=== PATIENT | female | born 1930 | race Caucasian/White ===

== ENCOUNTER 2017-05-06 22:29 | Inpatient (IN) | payer MEDICARE, OTHER ==
[~2017-05-06] VITALS: Ht 160 cm; Wt 80.7 kg
--- NOTE | 2017-05-06 22:42 | NUR ---
BB [id number] FROM HOME C/O N/V, BODY ACHE X 1 DAY. PT DENIES DIARRHEA. SKIN WARM AND MOIST. PT IS AAOX4. RESP EVEN AND UNLABORED. NO S/S OF ACUTE DISTRESS NOTED. VSS. PT GOWNED AND PLACED ON MONITOR AND POX. PT SAFETY AND COMFORT MEASURES IN PLACE. PT'S SON BEDSIDE. AWAITING MD FOR EVAL.
[2017-05-06] MEDS ORDERED: ACETAMINOPHEN 650 MG/SUPP.RECT RC ONE ×2 (23:00→23:13)
[2017-05-06] MEDS ORDERED: ONDANSETRON HCL/PF - ER 4 MG/2 ML VIAL IV ONE (23:00)
[2017-05-06] MEDS ORDERED: IV NS 0.9% 500 ML BAG IV ONE (23:00)
[2017-05-06] MEDS ORDERED: ONDANSETRON HCL/PF 4 MG/2 ML VIAL ONE (23:13)
[2017-05-06] MEDS ORDERED: ACETAMINOPHEN 120 MG/SUPP.RECT RC ONE (23:14)
[2017-05-06 23:23] LABS: BASOPHILS # (AUTO) 0.1 /CMM (0.0-0.2); BASOPHILS % (AUTO) 0.6 % (0.0-2.0); EOSINOPHILS % (AUTO) 0.1 % (0.0-6.0); HEMATOCRIT 31 % (33-45); HEMOGLOBIN 10.3 g/dL (11.5-14.8); LYMPHOCYTES # (AUTO) 0.8 /CMM (0.8-4.8); MEAN CORPUSCULAR HGB CONC 33 g/dl (31.0-36.0); MEAN CORPUSCULAR VOLUME 95 fL (82-100); MONOCYTES # (AUTO) 0.4 /CMM (0.1-1.30); MONOCYTES % (AUTO) 3.9 % (2.0-12.0); NEUTROPHILS # (AUTO) 8.5 /CMM (1.8-8.9); NEUTROPHILS % (AUTO) 87.4 % (43.0-81.0); PLATELET COUNT (AUTO) 128 /CMM (150-450); WHITE BLOOD COUNT (AUTO) 9.7 K/uL (4.3-11.0)
[2017-05-06 23:32] LABS: CALCIUM, SERUM 8.8 mg/dL (8.5-10.1); CARBON DIOXIDE 30 mmol/L (21-32); CHLORIDE 99 mmol/L (98-107); CREATININE 1.1 mg/dL (0.6-1.3); GLUCOSE 178 mg/dL (74-106); POTASSIUM 4.1 mmol/L (3.5-5.1); SODIUM SERUM 138 mmol/L (136-145); UREA NITROGEN, BLOOD 20 mg/dL (7-18)
[2017-05-06 23:43] LABS: INR 1.05 (0.87-1.13)
[2017-05-06 23:44] LABS: APPEARANCE,URINE CLOUDY (CLEAR); BILIRUBIN,URINE NEGATIVE (NEGATIVE); BLOOD, URINE 2+ Ery/uL (NEGATIVE); COLOR,URINE YELLOW (YELLOW); KETONES,URINE NEGATIVE (NEGATIVE); LEUKOCYTE ESTERASE ,URINE 2+ (NEGATIVE); NITRITE, URINE POSITIVE (NEGATIVE); PH,URINE 5.5 (5.0-8.0); PROTEIN,URINE TRACE mg/dl (NEGATIVE); UGLUCOSE NEGATIVE (NEGATIVE); UROBILINOGEN,URINE 0.2 EU/dL (0.2)
[2017-05-06 23:45] LABS: ALANINE AMINOTRANSFERASE 22 U/L (12-78); ALBUMIN 3.3 g/dL (3.4-5.0); ALKALINE PHOSPHATASE 37 U/L (46-116); ASPARTATE AMINOTRANSFERASE 20 U/L (15-37); B-TYPE NATRIURETIC PEPTIDE 2829 PG/ML (0-125); BILIRUBIN,DIRECT 0.2 mg/dL (0.0-0.2); BILIRUBIN,TOTAL 0.7 mg/dL (0.2-1.0); TOTAL PROTEIN, SERUM 7.4 g/dL (6.4-8.2)
--- NOTE | 2017-05-06 23:45 | NUR ---
PT TO CT
[2017-05-06 23:51] LABS: BACTERIA,URINE Many /HPF (None Seen); SQUAMOUS EPITHELIAL CELL,UR Many /HPF (None Seen); WBC,URINE 81-100 /HPF (0-3)
--- NOTE | 2017-05-07 00:01 | NUR ---
PT BACK FROM CT
[2017-05-07] MEDS ORDERED: LEVOFLOXACIN 500 MG /D5W 100ML 500 MG/100 ML PIGGYBACK IV ONE (00:30)
[2017-05-07] MEDS ORDERED: CEFTRIAXONE 1GM BAG (ER ONLY) 1 GM/50 ML PIGGYBACK IV ONE (00:30)
[2017-05-07] MEDS ORDERED: NITROGLYCERIN PACKET 1 GM PACKET TD ONE (00:30)
[2017-05-07] MEDS ORDERED: ENALAPRILAT INJ (1.25 MG/ML) 1.25 MG/ML VIAL IV PRN (00:30)
[2017-05-07] MEDS ORDERED: FUROSEMIDE 40 MG/4 ML VIAL IV ONE (00:30)
[2017-05-07] MEDS ORDERED: CEFTRIAXONE 1 G VIAL ONE (00:31)
[2017-05-07] MEDS ORDERED: LEVOFLOXACIN 500 MG /D5W 100ML 100 ML IV ONE (00:31)
[2017-05-07] MEDS ORDERED: FUROSEMIDE 40 MG/4 ML VIAL ONE (00:31)
[2017-05-07] MEDS ORDERED: ENALAPRILAT DIHYD. (2.5MG/ML) 1.25 MG/ML VIAL IV ONE (00:31)
[2017-05-07] MEDS ORDERED: NITROGLYCERIN PACKET 1 GM PACKET ONE (00:32)
--- NOTE | 2017-05-07 00:42 | NUR ---
1007 MIKE Addendum: 05/07/17 at 0043 by MARCO 107 MIKE
[2017-05-07] MEDS ORDERED: ONDANSETRON HCL/PF 4 MG/2 ML VIAL IVP PRN (01:00)
[2017-05-07] MEDS ORDERED: HYDROCODONE/APAP 5/325MG 1 EACH TABLET PO PRN (01:00)
[2017-05-07] MEDS ORDERED: ENOXAPARIN SODIUM 40 MG/0.4 ML DISP.SYRIN SQ SCH (01:00)
[2017-05-07] MEDS ORDERED: ASPIRIN 81 MG TAB.CHEW PO ONE (01:00)
[2017-05-07] MEDS ORDERED: MAG HYDROX/AL HYDROX/SIMETH 30 ML UDC PO PRN (01:00)
[2017-05-07] MEDS ORDERED: MAGNESIUM HYDROXIDE 30 ML UDC PO PRN (01:00)
[2017-05-07] MEDS ORDERED: ZOLPIDEM TARTRATE 5 MG TABLET PO PRN (01:00)
[2017-05-07] MEDS ORDERED: Z GUARD REMEDY 2 OZ OINT TP PRN (01:00)
--- NOTE | 2017-05-07 01:05 | NUR ---
REPORT GIVEN TO MIKE THOMAS BY LYNETTE MAR FOR ROSA
[2017-05-07 02:00] VITALS: BP 106/38
[2017-05-07] MEDS: CEFTRIAXONE 1 G in IV NS 0.9% 50 ML IV SCH (02:00)
--- NOTE | 2017-05-07 02:30 | NUR ---
BLANCHING MACHINE OPERATOR: RECEIVED PT FROM ER , DX CHF, PNA, AND UTI, PT IS AAO X3, FARSI SPEAKING, SON AT BEDSIDE INTERPRETING, V/S STABLE, HEART RATE 55 SINUS. , ON FACE MASK AT 6 LITRE, SATURATING 98%. DENIED PAIN. ONGOING LEVOFLOAXCIN. IV ACCESS INTACT. MARADIAGA CATHETER WITH CLEAR GRAHAM COLOR URINE NOTED. ALL ADMISSION ASSESSMENT DONE. SKIN IS INTACT, PT IS FULL CODE. ONGOING MONITORING.
[2017-05-07 04:00] VITALS: BP 90/55
--- NOTE | 2017-05-07 04:35 | NUR ---
INSTITUTION LIBRARIAN; PT HAVING LOW HEART RATE DOWN TO 40 TYEN BACK TO 48-50, SBP 88/42, ASYMPTOMATIC, MD DR BERE EDGAR AWARE, NO NEW ORDERS NOTED. KEEP MONITORING...
[2017-05-07 08:00] VITALS: BP 124/44
[2017-05-07] MEDS ORDERED: METF-442 PO (08:35)
[2017-05-07] MEDS ORDERED: ATOR20TA PO (08:35)
[2017-05-07] MEDS ORDERED: PANT40TA2 PO (08:35)
[2017-05-07] MEDS ORDERED: GABA-532 PO (08:35)
[2017-05-07] MEDS ORDERED: CYCL30DR EACHEYE (08:35)
[2017-05-07] MEDS ORDERED: OXYB5TAB11 PO (08:35)
[2017-05-07] MEDS ORDERED: GLIM4TAB2 PO (08:35)
[2017-05-07] MEDS ORDERED: CARV3.122 PO (08:35)
[2017-05-07] MEDS ORDERED: ESCI20TA PO (08:35)
[2017-05-07] MEDS ORDERED: CALC-10 PO (08:35)
[2017-05-07] MEDS ORDERED: OMEG1CAP55 PO (08:35)
[2017-05-07] MEDS ORDERED: MECL-102 PO (08:35)
[2017-05-07] MEDS: CARVEDILOL 6.25 MG TABLET PO SCH ×3 (09:00→20:22)
[2017-05-07] MEDS ORDERED: ENOXAPARIN SODIUM 40 MG/0.4 ML DISP.SYRIN SQ ONE (09:00)
[2017-05-07 09:40] LABS: TROPONIN I 0.391 ng/mL (0.00-0.056)
[2017-05-07 09:47] LABS: THYROID STIMULATING HORMONE 0.327 uIU/mL (0.358-3.74)
[2017-05-07] MEDS: FUROSEMIDE 40 MG/4 ML VIAL IV SCH ×2 (09:54→16:29)
[2017-05-07] MEDS: ATORVASTATIN 10 MG TABLET PO SCH (09:54)
[2017-05-07] MEDS: AZITHROMYCIN 250 MG TABLET PO SCH (09:56)
[2017-05-07] MEDS: ASPIRIN 81 MG TAB.CHEW PO SCH (09:56)
[2017-05-07] MEDS: METFORMIN 500 MG TABLET PO SCH ×2 (09:56→16:29)
[2017-05-07] MEDS: LOSARTAN POTASSIUM 50 MG TABLET PO SCH (09:57)
[2017-05-07] MEDS: PANTOPRAZOLE 40 MG TABLET.DR PO SCH (09:59)
[2017-05-07] MEDS: ACETAMINOPHEN 325 MG TABLET PO PRN ×3 (10:23→23:42)
[2017-05-07 12:00] VITALS: BP 108/47
[2017-05-07 16:00] VITALS: BP 100/40
[2017-05-07 16:14] LABS: ABG BASE EXCESS 4.3 mmol/L; ABG OXYGEN SATURATION 96.5 % (92.0-98.5); ABG PH 7.409 (7.350-7.450); COHb 0.3 % (0.5-1.5); MetHb 0.5 % (0.0-1.5); O2Hb 95.7 % (94.0-97.0); SITE, ABG Right Radial; VENT MODE, BG Nasal Cannula
[2017-05-07] MEDS: LACTOBACILLUS RHAMNOSUS GG 1 EACH CAP.SPRINK PO SCH (16:29)
--- NOTE | 2017-05-07 19:30 | NUR ---
RN MIKE NOTE RECEIVED PATIENT RESTING COMFORTABLY WITH HOB ELEVATED, FARSI SPEAKING, SON AT BEDSIDE, AOX3, TOLERATING 2L O2 VIA NC. TELE SB 55, NO CARDIAC OR RESPIRATORY DISTRESS REPORTED. MARADIAGA CATHETER DRAINING STRAW COLOR URINE. LEFT WRIST #20G AND RAC #30G PATENT FLUSHING WELL, SITE CDI. BED IN LOW LOCKED POSITION AND CALL LIGHT WITHIN REACH. SAFETY MAINTAINED AT ALL TIMES, WILL CONTINUE TO MONITOR FOR ANY CHANGES IN CONDITION.
[2017-05-07 20:00] VITALS: BP 90/46
[2017-05-07] MEDS: ENOXAPARIN SODIUM 80 MG/0.8 ML DISP.SYRIN SQ SCH (20:27)
[2017-05-08] VITALS: BP 117/42
[2017-05-08] MEDS: CEFTRIAXONE 1 G in IV NS 0.9% 50 ML IV SCH (02:24)
[2017-05-08 04:00] VITALS: BP 91/41
--- NOTE | 2017-05-08 06:17 | NUR ---
RN MIKE CLOSING NOTE NO ACUTE CHANGES, PATIENT IS RESTING COMFORTABLY IN BED, SAFETY MAINTAINED AT ALL TIMES. BED IN LOW AND LOCKED POSITION. WILL ENDORSE TO RN FOR CONTINUITY OF CARE.
[2017-05-08 06:43] LABS: BASOPHILS % (AUTO) 0.1 % (0.0-2.0); EOSINOPHILS % (AUTO) 0.8 % (0.0-6.0); HEMATOCRIT 29 % (33-45); HEMOGLOBIN 9.9 g/dL (11.5-14.8); LYMPHOCYTES # (AUTO) 1.2 /CMM (0.8-4.8); LYMPHOCYTES % (AUTO) 16.7 % (20.0-44.0); MEAN CORPUSCULAR HGB CONC 34 g/dl (31.0-36.0); MEAN CORPUSCULAR VOLUME 92 fL (82-100); MONOCYTES # (AUTO) 0.4 /CMM (0.1-1.30); MONOCYTES % (AUTO) 6.1 % (2.0-12.0); NEUTROPHILS # (AUTO) 5.3 /CMM (1.8-8.9); NEUTROPHILS % (AUTO) 76.3 % (43.0-81.0); PLATELET COUNT (AUTO) 103 /CMM (150-450); RDW COEFFICIENT OF VARIATION 14.2 (11.5-15.0); RED BLOOD CELL COUNT(AUTO) 3.17 MIL/uL (4.0-5.2); WHITE BLOOD COUNT (AUTO) 6.9 K/uL (4.3-11.0)
[2017-05-08 06:48] LABS: ALANINE AMINOTRANSFERASE 20 U/L (12-78); ALBUMIN 2.8 g/dL (3.4-5.0); ALKALINE PHOSPHATASE 33 U/L (46-116); ASPARTATE AMINOTRANSFERASE 23 U/L (15-37); BILIRUBIN,TOTAL 0.3 mg/dL (0.2-1.0); CALCIUM, SERUM 8.3 mg/dL (8.5-10.1); CARBON DIOXIDE 30 mmol/L (21-32); CHLORIDE 100 mmol/L (98-107); CREATININE 1.5 mg/dL (0.6-1.3); GLUCOSE 58 mg/dL (74-106); PHOSPHORUS 3.6 mg/dL (2.5-4.9); POTASSIUM 3.9 mmol/L (3.5-5.1); SODIUM SERUM 139 mmol/L (136-145); TOTAL PROTEIN, SERUM 6.8 g/dL (6.4-8.2); UREA NITROGEN, BLOOD 30 mg/dL (7-18)
[2017-05-08 06:53] LABS: MAGNESIUM 1.2 mg/dL (1.8-2.4)
[2017-05-08 06:56] LABS: TROPONIN I 0.168 ng/mL (0.00-0.056)
[2017-05-08 06:57] LABS: CHOLESTEROL 105 mg/dL (<200); HDL CHOLESTEROL 43 mg/dL (40-60); LDL 52 mg/dL (0-99); TRIGLYCERIDES 121 mg/dL (30-150)
[2017-05-08] MEDS ORDERED: Magnesium 1GM/D5W 100ML PREMIX PIGGYBACK IV ONE ×2 (07:00)
--- NOTE | 2017-05-08 07:07 | NUR ---
RECEIVED CRITICAL LAB MAG LEVEL 1.2, SPOKE TO ADRYAN SONI, WITH NEW ORDER TO GIVE 2 GRAMS IVPB.
--- NOTE | 2017-05-08 07:30 | NUR ---
RN NOTE PER PM RN PARKER PATIENT IS ONLY TO RECEIVE 2GRAMS MAGNESIUM.
[2017-05-08 08:00] VITALS: BP 141/72
[2017-05-08] MEDS: ENOXAPARIN SODIUM 80 MG/0.8 ML DISP.SYRIN SQ SCH (09:00)
[2017-05-08] MEDS: FUROSEMIDE 40 MG/4 ML VIAL IV SCH (09:27)
[2017-05-08] MEDS: METFORMIN 500 MG TABLET PO SCH ×2 (09:27→16:41)
[2017-05-08] MEDS: ATORVASTATIN 10 MG TABLET PO SCH (09:27)
[2017-05-08] MEDS: ASPIRIN 81 MG TAB.CHEW PO SCH (09:27)
[2017-05-08] MEDS: AZITHROMYCIN 250 MG TABLET PO SCH (09:27)
[2017-05-08] MEDS: PANTOPRAZOLE 40 MG TABLET.DR PO SCH (09:27)
[2017-05-08] MEDS: Magnesium 1GM/D5W 100ML PREMIX 100 ML IV SCH ×4 (09:27→12:02)
[2017-05-08] MEDS: CARVEDILOL 6.25 MG TABLET PO SCH ×2 (09:28→20:23)
[2017-05-08] MEDS: LOSARTAN POTASSIUM 50 MG TABLET PO SCH (09:28)
[2017-05-08] MEDS: LACTOBACILLUS RHAMNOSUS GG 1 EACH CAP.SPRINK PO SCH ×2 (09:28→16:41)
[2017-05-08 10:26] LABS: FERRITIN 72 ng/mL (8-388)
[2017-05-08] MEDS ORDERED: BUMETANIDE INJ 8 MG in IV NS 0.9% 48 ML IV ONE (11:00)
[2017-05-08 12:00] VITALS: BP 117/55
[2017-05-08] MEDS: POTASSIUM CHLORIDE 20 MEQ TAB.PRT.SR PO SCH ×2 (12:50→16:41)
[2017-05-08] MEDS: ENOXAPARIN SODIUM 40 MG/0.4 ML DISP.SYRIN SQ SCH (12:50)
[2017-05-08 16:00] VITALS: BP 112/65
[2017-05-08] MEDS: ACETAMINOPHEN 325 MG TABLET PO PRN (16:41)
--- NOTE | 2017-05-08 19:20 | NUR ---
PLOW AND BORING MACHINE TENDER OPENING NOTES RECEIVED REPORT FROM TAMMY Baldwin RN. PATIENT A/A/O X2-3, MOSTLY FARSI SPEAKING BUT ABLE TO MAKE SOME NEEDS KNOWN. BREATHING EVEN & UNLABORED, ON O2 2L VIA NC. DENIES SOB OR DIFFICULTY BREATHING. ON TELE W/ SINUS NOAH W/ ELEVATED T WAVE, HR 58. RIGHT AC IV #20 & LEFT WRIST IV #20 INTACT & PATENT W/ DRESSING CDI, SALINE LOCKED. MARADIAGA CATH DRAINING YELLOW URINE. DENIES ANY PAIN OR DISCOMFORT @ THIS TIME. SAFETY MEASURES IN PLACE W/ CALL LIGHT WITHIN REACH. INSTRUCTED TO CALL FOR ASSISTANCE. SON CURRENTLY @ BEDSIDE. WILL CONTINUE TO MONITOR.
[2017-05-08 20:00] VITALS: BP 101/53
[2017-05-09] VITALS: BP 102/49
[2017-05-09 00:57] LABS: CREATININE, URINE 53.6 MG/DL (30.0-125.0); URINE TOTAL PROTEIN 36.8 mg/dL (0-11.9)
[2017-05-09 01:13] LABS: APPEARANCE,URINE CLEAR (CLEAR); BILIRUBIN,URINE NEGATIVE (NEGATIVE); BLOOD, URINE 3+ Ery/uL (NEGATIVE); COLOR,URINE YELLOW (YELLOW); KETONES,URINE NEGATIVE (NEGATIVE); LEUKOCYTE ESTERASE ,URINE NEGATIVE (NEGATIVE); NITRITE, URINE NEGATIVE (NEGATIVE); PH,URINE 5.5 (5.0-8.0); PROTEIN,URINE TRACE mg/dl (NEGATIVE); UGLUCOSE NEGATIVE (NEGATIVE); UROBILINOGEN,URINE 0.2 EU/dL (0.2)
[2017-05-09 01:27] LABS: BACTERIA,URINE Few /HPF (None Seen); HYALINE CASTS, URINE Rare /LPF (None Seen); SQUAMOUS EPITHELIAL CELL,UR Few /HPF (None Seen)
--- NOTE | 2017-05-09 02:00 | NUR ---
RN NOTES PATIENT ACCIDENTALLY PULLED IV ON RIGHT AC & IV ON LEFT WRIST DC'D D/T INFILTRATION. NEW IV STARTED ON LEFT HAND #20 W/ GOOD BLOOD RETURN & FLUSHING WELL. PATIENT TOLERATED PROCEDURE WELL.
[2017-05-09] MEDS: CEFTRIAXONE 1 G in IV NS 0.9% 50 ML IV SCH (02:13)
[2017-05-09 04:00] VITALS: BP 139/64
--- NOTE | 2017-05-09 05:39 | NUR ---
RN NOTES PATIENT REFUSED BED BATH, OFFERED X2 BUT STILL REFUSED. ONLY DIAPER CHANGE DONE.
[2017-05-09 06:37] LABS: BASOPHILS % (AUTO) 0.1 % (0.0-2.0); EOSINOPHILS % (AUTO) 2.1 % (0.0-6.0); HEMATOCRIT 30 % (33-45); HEMOGLOBIN 10.4 g/dL (11.5-14.8); LYMPHOCYTES # (AUTO) 1.1 /CMM (0.8-4.8); LYMPHOCYTES % (AUTO) 19.5 % (20.0-44.0); MEAN CORPUSCULAR HGB CONC 34 g/dl (31.0-36.0); MEAN CORPUSCULAR VOLUME 91 fL (82-100); MONOCYTES # (AUTO) 0.6 /CMM (0.1-1.30); MONOCYTES % (AUTO) 10.2 % (2.0-12.0); NEUTROPHILS # (AUTO) 3.9 /CMM (1.8-8.9); NEUTROPHILS % (AUTO) 68.1 % (43.0-81.0); PLATELET COUNT (AUTO) 120 /CMM (150-450); RDW COEFFICIENT OF VARIATION 13.4 (11.5-15.0); RED BLOOD CELL COUNT(AUTO) 3.32 MIL/uL (4.0-5.2); WHITE BLOOD COUNT (AUTO) 5.7 K/uL (4.3-11.0)
[2017-05-09 06:42] LABS: ALANINE AMINOTRANSFERASE 21 U/L (12-78); ALBUMIN 2.7 g/dL (3.4-5.0); ALKALINE PHOSPHATASE 32 U/L (46-116); ASPARTATE AMINOTRANSFERASE 21 U/L (15-37); BILIRUBIN,TOTAL 0.2 mg/dL (0.2-1.0); CALCIUM, SERUM 8.8 mg/dL (8.5-10.1); CARBON DIOXIDE 32 mmol/L (21-32); CHLORIDE 99 mmol/L (98-107); CREATININE 1.4 mg/dL (0.6-1.3); GLUCOSE 107 mg/dL (74-106); MAGNESIUM 1.6 mg/dL (1.8-2.4); PHOSPHORUS 4.6 mg/dL (2.5-4.9); POTASSIUM 4.2 mmol/L (3.5-5.1); SODIUM SERUM 138 mmol/L (136-145); UREA NITROGEN, BLOOD 32 mg/dL (7-18)
--- NOTE | 2017-05-09 07:30 | NUR ---
COMMUNITY HEALTH CONSULTANT AM NOTES PT IN BED, A/A/O X2, FARSI SPEAKING BUT ABLE TO MAKE SOME NEEDS KNOWN. BREATHING EVEN & UNLABORED, ON O2 2L VIA NC. DENIES SOB OR DIFFICULTY BREATHING. TELEMETRY READS SINUS RHYTHM HR 62. DENIES PAIN/DISCOMFORT, RIGHT AC IV #20 & LEFT WRIST IV #20 FLUSHES WELL, SITE CLEAR, SALINE LOCKED. MARADIAGA CATH DRAINING YELLOW URINE. SAFETY MEASURES IN PLACE W/ CALL LIGHT WITHIN REACH. INSTRUCTED TO CALL FOR ASSISTANCE. SON CURRENTLY @ BEDSIDE. WILL CONTINUE TO MONITOR.
[2017-05-09 08:00] VITALS: BP_SYST 122; BP_SYST 127; BP_DIAS 52
[2017-05-09] MEDS: PANTOPRAZOLE 40 MG TABLET.DR PO SCH (09:05)
--- NOTE | 2017-05-09 09:30 | NUR ---
HEALTH SPA MANAGER NOTES DUE MEDS GIVEN
[2017-05-09] MEDS: ASPIRIN 81 MG TAB.CHEW PO SCH (10:22)
[2017-05-09] MEDS: AZITHROMYCIN 250 MG TABLET PO SCH (10:23)
[2017-05-09] MEDS: LACTOBACILLUS RHAMNOSUS GG 1 EACH CAP.SPRINK PO SCH ×2 (10:24→16:25)
[2017-05-09] MEDS: ATORVASTATIN 10 MG TABLET PO SCH (10:24)
[2017-05-09] MEDS: LOSARTAN POTASSIUM 50 MG TABLET PO SCH (10:28)
[2017-05-09] MEDS: METFORMIN 500 MG TABLET PO SCH (10:29)
[2017-05-09] MEDS: CARVEDILOL 6.25 MG TABLET PO SCH ×2 (10:29→21:45)
[2017-05-09] MEDS: ENOXAPARIN SODIUM 40 MG/0.4 ML DISP.SYRIN SQ SCH (10:31)
--- NOTE | 2017-05-09 10:44 | NUR ---
MS RN NOTES DC TELE PER DR. RICHARD.
[2017-05-09] MEDS ORDERED: BUMETANIDE INJ 8 MG in IV NS 0.9% 48 ML IV ONE (11:00)
[2017-05-09] MEDS: Magnesium 1GM/D5W 100ML PREMIX 100 ML IV SCH ×2 (11:23→12:15)
[2017-05-09 12:00] VITALS: BP 107/49
[2017-05-09 16:00] VITALS: BP_SYST 101; BP_SYST 93; BP_DIAS 44
--- NOTE | 2017-05-09 19:30 | NUR ---
MS RN INITIAL NOTE PT RECEIVED AWAKE AND ALERT WITH SON AT BEDSIDE. A/O X3 AND FARSI SPEAKING. ON 2L OF O2 VIA NC AND SATURATING 94%. BREATHING REGULAR AND UNLABORED. TELE-SB 58. IV RIGHT HAND #20 CLEAN, DRY AND INTACT. MARADIAGA CATHETER IN PLACE AND DRAINING BY GRAVITY. NO C/O PAIN OR DISCOMFORT NOTED. CALL LIGHT WITHIN REACH. WILL CONTINUE TO MONITOR.
--- NOTE | 2017-05-09 19:38 | NUR ---
MS RN NOTES NO ACUTE CHANGES NOTED DURING THE SHIFT. WILL ENDORSE TO THE PM NURSE FOR ROSA.
[2017-05-09 20:00] VITALS: BP 108/54
[2017-05-10] MEDS: CEFTRIAXONE 1 G in IV NS 0.9% 50 ML IV SCH (01:26)
[2017-05-10 04:00] VITALS: BP_SYST 106; BP_SYST 141; BP_DIAS 47; BP_DIAS 56
[2017-05-10 06:30] LABS: BASOPHILS % (AUTO) 0.2 % (0.0-2.0); EOSINOPHILS % (AUTO) 4.5 % (0.0-6.0); HEMATOCRIT 32 % (33-45); HEMOGLOBIN 10.8 g/dL (11.5-14.8); LYMPHOCYTES # (AUTO) 1.4 /CMM (0.8-4.8); LYMPHOCYTES % (AUTO) 23.8 % (20.0-44.0); MEAN CORPUSCULAR HGB CONC 33 g/dl (31.0-36.0); MEAN CORPUSCULAR VOLUME 92 fL (82-100); MONOCYTES # (AUTO) 0.6 /CMM (0.1-1.30); MONOCYTES % (AUTO) 10.7 % (2.0-12.0); NEUTROPHILS # (AUTO) 3.6 /CMM (1.8-8.9); NEUTROPHILS % (AUTO) 60.8 % (43.0-81.0); PLATELET COUNT (AUTO) 140 /CMM (150-450); RDW COEFFICIENT OF VARIATION 13.7 (11.5-15.0); RED BLOOD CELL COUNT(AUTO) 3.51 MIL/uL (4.0-5.2); WHITE BLOOD COUNT (AUTO) 5.8 K/uL (4.3-11.0)
[2017-05-10 06:53] LABS: ALANINE AMINOTRANSFERASE 21 U/L (12-78); ALBUMIN 2.9 g/dL (3.4-5.0); ALKALINE PHOSPHATASE 34 U/L (46-116); ASPARTATE AMINOTRANSFERASE 22 U/L (15-37); BILIRUBIN,TOTAL 0.2 mg/dL (0.2-1.0); CALCIUM, SERUM 9.4 mg/dL (8.5-10.1); CARBON DIOXIDE 36 mmol/L (21-32); CHLORIDE 98 mmol/L (98-107); CREATININE 1.3 mg/dL (0.6-1.3); GLUCOSE 125 mg/dL (74-106); MAGNESIUM 1.6 mg/dL (1.8-2.4); PHOSPHORUS 4.2 mg/dL (2.5-4.9); POTASSIUM 4.2 mmol/L (3.5-5.1); SODIUM SERUM 138 mmol/L (136-145); TOTAL PROTEIN, SERUM 7.4 g/dL (6.4-8.2); UREA NITROGEN, BLOOD 31 mg/dL (7-18)
[2017-05-10 06:54] LABS: FERRITIN 63 ng/mL (8-388)
[2017-05-10 06:56] LABS: IRON, SERUM 31 ug/dl (50-175); TOTAL IRON BINDING CAPACITY 291 ug/dl (250-450)
--- NOTE | 2017-05-10 07:20 | NUR ---
MS RN CLOSING NOTE NO ACUTE DISTRESS NOTED. ALL NEEDS ATTENDED TO PROMPTLY. SON AT BEDSIDE. ASSISTED TO BEDSIDE COMMODE AND BACK TO BED SAFELY. CALL LIGHT WITHIN REACH. WILL ENDORSE TO NEXT SHIFT FOR CONTINUITY OF CARE.
[2017-05-10 08:00] VITALS: BP 143/55
[2017-05-10] MEDS: LOSARTAN POTASSIUM 50 MG TABLET PO SCH (10:11)
[2017-05-10] MEDS: ATORVASTATIN 10 MG TABLET PO SCH (10:12)
[2017-05-10] MEDS: CARVEDILOL 6.25 MG TABLET PO SCH ×2 (10:12→21:52)
[2017-05-10] MEDS: LACTOBACILLUS RHAMNOSUS GG 1 EACH CAP.SPRINK PO SCH ×2 (10:12→17:40)
[2017-05-10] MEDS: ASPIRIN 81 MG TAB.CHEW PO SCH (10:13)
[2017-05-10] MEDS: FUROSEMIDE 40 MG TABLET PO SCH (10:13)
[2017-05-10] MEDS: PANTOPRAZOLE 40 MG TABLET.DR PO SCH (10:13)
[2017-05-10] MEDS: Magnesium 1GM/D5W 100ML PREMIX 100 ML IV SCH ×2 (10:16→11:00)
[2017-05-10] MEDS: ENOXAPARIN SODIUM 40 MG/0.4 ML DISP.SYRIN SQ SCH (11:00)
[2017-05-10 12:00] VITALS: BP 143/60
[2017-05-10 16:00] VITALS: BP 106/47
--- NOTE | 2017-05-10 17:40 | NUR ---
NO DISTRESS NOTED THIS SHIFT. SON AT BEDSIDE. PATIENT VOICES DESIRE TO " GO HOME" IS REPEATEDLY SAYING OVER AND OVER AGAIN AT TIMES. EMOTIONS REASSURANCE GIVEN WITH SOME RELIEF
--- NOTE | 2017-05-10 19:00 | NUR ---
MS GARCIA IS ALERT AND OREINTATED, SPEAKS FARSI, SON IS AT HER BEDDSIDE TO HELP TRANSLATE. SHE IS SMILING AND WILL FOLLOW DIRECTIONS. UA IN THE MARADIAGA IS CLEAR YELLOW AND LUNGS VIA AUSCULTATION CLEAR . NOTED ON ROCEPHEN Q24 HOURS
[2017-05-10 20:00] VITALS: BP_SYST 119; BP_DIAS 52; BP_DIAS 55
[2017-05-10 20:29] VITALS: BP 119/52
[2017-05-11] MEDS: CEFTRIAXONE 1 G in IV NS 0.9% 50 ML IV SCH (02:00)
[2017-05-11 04:29] VITALS: BP 112/50
--- NOTE | 2017-05-11 05:27 | NUR ---
SLEPT THRU THE NIGHT NEEDING HELP TO CHANGE HER POSITION. SON AT HER BEDSIDE THRU THE NIGHT
--- NOTE | 2017-05-11 07:30 | NUR ---
PATIENT RECEIVED ALERT AWAKE ORIENTED X3. ON 2LPM O2 VIA NC. NO BREATHING DIFFICULTY NOTED. DENIES CHEST PAIN & DISCOMFORT. IV CATHETER INTACT, DRESSING INTACT & PATENT. MARADIAGA CATHETER INTACT, DRAINING WELL WITH GRAVITY. SAFETY MEASURES OBSERVED. CALL LIGHT WITHIN REACH. WILL CONTINUE TO MONITOR. SON AT BEDSIDE.
[2017-05-11 08:00] VITALS: BP 142/56
[2017-05-11] MEDS: LOSARTAN POTASSIUM 50 MG TABLET PO SCH (08:57)
[2017-05-11 08:58] VITALS: BP 142/56
[2017-05-11] MEDS: LACTOBACILLUS RHAMNOSUS GG 1 EACH CAP.SPRINK PO SCH (08:58)
[2017-05-11] MEDS: FUROSEMIDE 40 MG TABLET PO SCH (08:58)
[2017-05-11] MEDS: CARVEDILOL 6.25 MG TABLET PO SCH (08:58)
[2017-05-11] MEDS: ATORVASTATIN 10 MG TABLET PO SCH (08:58)
[2017-05-11] MEDS: ASPIRIN 81 MG TAB.CHEW PO SCH (08:58)
[2017-05-11] MEDS: PANTOPRAZOLE 40 MG TABLET.DR PO SCH (09:00)
--- NOTE | 2017-05-11 10:30 | NUR ---
RN NOTE: SPO2 ON ROOM AIR ON ROOM-AIR SPO2 LOWEST IS 79%. ON 2LPM O2 VIA NC 93-97%.
--- NOTE | 2017-05-11 10:30 | NUR ---
HYDRATION PLANT OPERATOR MARIBEL CARRERA PT. NEED HOME OXYGEN PER MD ORDER.
[2017-05-11] MEDS: ENOXAPARIN SODIUM 40 MG/0.4 ML DISP.SYRIN SQ SCH (11:24)
--- NOTE | 2017-05-11 13:57 | NUR ---
DISCHARGE ORDER IN SON AWARE,AWAITS CM FOR HOME OXYGEN.
--- NOTE | 2017-05-11 15:53 | NUR ---
DISCHARGE INSTRUCTION GIVEN,PER SON HE ALREADY MADE APPOINMENT FOR SATURDAY WITH THEIR FAMILY DOCTOR LLOYD.IV D/C. DISCHARGE VIA WHEELCHAIR ACCOMPANIED BY SON,CM UPDATED WITH NEW ADDRESS TO DELIVER HOME O2,PT. DISCHARGE W/ PORTABLE O2.SCRIPTS GIVEN.
--- NOTE | 2017-05-11 15:55 | NUR ---
RN NOTE: DISCHARGE PATIENT DISCHARGE & DISCHARGE INSTRUCTIONS, HOW TO USE OXYGEN AT HOME EDUCATION/INSTRUCTIONS GIVEN BY LESVIA REA RN TO CRISTIANE FIGUEROA AT BEDSIDE. SON VERBALIZE TO UNDERSTAND. PATIENT LEFT ALERT AWAKE ORIENTED X3, ON 2LPM O2 VIA NC. MARADIAGA CATH REMOVED TODAY EARLIER, PT WAS ABLE TO URINATE S/P D/C FC. DENIES PAIN AT TIME OF DISCHARGE. IV CATHETER REMOVED, PRESSURE DRESSING APPLIED. LEFT WITH ALL BELONGINGS WITH SON FROM FLOOR.
[2017-11-01] MEDS ORDERED: LEVO500T75 PO (09:32)
== END 2017-05-11 16:00 | disposition home or self-care (01) | DRG 871 ==
LOC: ER 22:31 → TELE1 05-07 00:52 → TELE-TD 05-07 02:19 → TELE1 05-08 10:40 → MEDSG1 05-09 12:20
PROVIDERS: ADMIT Internal Medicine; ATTEND Internal Medicine
DX: A41.9 Sepsis, unspecified organism (principal); I21.A1 Myocardial infarction type 2; J96.01 Acute respiratory failure with hypoxia; I50.33 Acute on chronic diastolic (congestive) heart failure; N17.9 Acute kidney failure, unspecified; E87.2 Acidosis; N39.0 Urinary tract infection, site not specified; I13.0 Hypertensive heart and chronic kidney disease with heart failure and stage 1 through stage 4 chronic kidney disease, or unspecified chronic kidney disease; I11.0 Hypertensive heart disease with heart failure; E66.01 Morbid (severe) obesity due to excess calories; Z90.49 Acquired absence of other specified parts of digestive tract; E11.40 Type 2 diabetes mellitus with diabetic neuropathy, unspecified; E11.22 Type 2 diabetes mellitus with diabetic chronic kidney disease; E78.5 Hyperlipidemia, unspecified; G47.33 Obstructive sleep apnea (adult) (pediatric); Z79.84 Long term (current) use of oral hypoglycemic drugs; Z79.899 Other long term (current) drug therapy; N18.9 Chronic kidney disease, unspecified; I70.0 Atherosclerosis of aorta; K21.9 Gastro-esophageal reflux disease without esophagitis; Z90.710 Acquired absence of both cervix and uterus; N32.81 Overactive bladder; M85.80 Other specified disorders of bone density and structure, unspecified site; I35.1 Nonrheumatic aortic (valve) insufficiency; I34.0 Nonrheumatic mitral (valve) insufficiency
CPT/HCPCS: 36415; 36600; 71045-TC; 80048-TC; 80053-TC; 80061-TC; 80076-TC; 81000-TC; 82306; 82570-TC; 82728-TC; 82962-TC; 83540-TC; 83605-TC; 83690-TC; 83735-TC; 83880; 84100-TC; 84155-TC; 84300-TC; 84439-TC; 84443-TC; 84484-TC; 85025-TC; 85730-TC; 87040-TC; 87081-TC; 87086-TC; 87186-TC; 87400; 93307-TC; A4216; A4606; J0696; J1650; J1940; J1956; J2405; J3475; J3490; J7040; J7050; Z7610

== ENCOUNTER 2017-08-08 13:52 | Inpatient (IN) | payer MEDICARE, OTHER ==
[~2017-08-08] VITALS: Ht 167.6 cm; Wt 79.8 kg
--- NOTE | 2017-08-08 07:30 | NUR ---
PT WITH DIAGNOSIS OF ABDOMINAL PAIN. V/S ARE STABLE, PT ON 02 VIA N/C 2L, TOLERATING WELL. WITH IV ACCESS ON RIGHT AC G #18, INTACT AND PATENT. SAFETY MEASURES INITIATED. HOB ELEVATED. BED IN LOW/LOCKED POSITION. BED ALARM ON. CALL LIGHT WITHIN REACH.SUN AT THE BEDSIDE
[~2017-08-08 13:52] MED LIST: ATOR20TA PO; CALC-10 PO; CARV3.122 PO; CYCL30DR EACHEYE; ESCI20TA PO; GABA-532 PO; GLIM4TAB2 PO; MECL-102 PO; METF-442 PO; OMEG1CAP55 PO; OXYB5TAB11 PO; PANT40TA2 PO
--- NOTE | 2017-08-08 13:52 | NUR ---
R KNEE PAIN S/P GLF 3 DAYS CORRESPONDENCE ANALYST. NAD NOTED. PT AAOX 4, AMB WITH STEADY GAIT. RR EVEN AND UNLABORED. PENDING MD ONEIL.
[2017-08-08] MEDS ORDERED: ONDANSETRON HCL/PF - ER 4 MG/2 ML VIAL IV ONE (15:00)
[2017-08-08] MEDS ORDERED: IV NS 0.9% 1,000 ML BAG IV ONE (15:00)
[2017-08-08] MEDS ORDERED: ONDANSETRON HCL/PF 4 MG/2 ML VIAL ONE (15:01)
[2017-08-08 15:09] LABS: BASOPHILS # (AUTO) 0.1 /CMM (0.0-0.2); EOSINOPHILS % (AUTO) 1.9 % (0.0-6.0); HEMATOCRIT 31 % (33-45); HEMOGLOBIN 10.9 g/dL (11.5-14.8); LYMPHOCYTES # (AUTO) 1.5 /CMM (0.8-4.8); LYMPHOCYTES % (AUTO) 29.4 % (20.0-44.0); MEAN CORPUSCULAR HGB CONC 35 g/dl (31.0-36.0); MEAN CORPUSCULAR VOLUME 90 fL (82-100); MONOCYTES # (AUTO) 0.3 /CMM (0.1-1.30); MONOCYTES % (AUTO) 5.9 % (2.0-12.0); NEUTROPHILS # (AUTO) 3.3 /CMM (1.8-8.9); NEUTROPHILS % (AUTO) 60.8 % (43.0-81.0); PLATELET COUNT (AUTO) 168 /CMM (150-450); RDW COEFFICIENT OF VARIATION 13.5 (11.5-15.0); RED BLOOD CELL COUNT(AUTO) 3.43 MIL/uL (4.0-5.2); WHITE BLOOD COUNT (AUTO) 5.3 K/uL (4.3-11.0)
[2017-08-08 15:19] LABS: CARBON DIOXIDE 28 mmol/L (21-32); CHLORIDE 99 mmol/L (98-107); CREATININE 1.2 mg/dL (0.6-1.3); GLUCOSE 151 mg/dL (74-106); POTASSIUM 4.3 mmol/L (3.5-5.1); SODIUM SERUM 134 mmol/L (136-145); UREA NITROGEN, BLOOD 20 mg/dL (7-18)
[2017-08-08 15:20] LABS: INR 0.96 (0.85-1.15)
[2017-08-08 15:23] LABS: ALANINE AMINOTRANSFERASE 22 U/L (12-78); ALBUMIN 3.2 g/dL (3.4-5.0); ALKALINE PHOSPHATASE 44 U/L (46-116); ASPARTATE AMINOTRANSFERASE 21 U/L (15-37); BILIRUBIN,DIRECT 0.1 mg/dL (0.0-0.2); BILIRUBIN,TOTAL 0.3 mg/dL (0.2-1.0); TOTAL PROTEIN, SERUM 7.2 g/dL (6.4-8.2)
[2017-08-08 15:25] LABS: TROPONIN I < 0.017 ng/mL (0.00-0.056)
--- NOTE | 2017-08-08 15:55 | NUR ---
PT TO CT
[2017-08-08 16:19] LABS: APPEARANCE,URINE Clear (CLEAR); BILIRUBIN,URINE Negative (NEGATIVE); BLOOD, URINE Trace-intact Ery/uL (NEGATIVE); COLOR,URINE Yellow (YELLOW); KETONES,URINE Negative (NEGATIVE); LEUKOCYTE ESTERASE ,URINE Negative (NEGATIVE); NITRITE, URINE Negative (NEGATIVE); PROTEIN,URINE Negative (NEGATIVE); UGLUCOSE Negative (NEGATIVE); UROBILINOGEN,URINE 0.2 EU/dL (0.2)
[2017-08-08 16:24] LABS: RBC,URINE 0-2 /HPF (0-2); WBC,URINE 0-3 /HPF (0-3)
[2017-08-08 16:25] LABS: BACTERIA,URINE None seen /HPF (None Seen); SQUAMOUS EPITHELIAL CELL,UR Few /HPF (None Seen)
[2017-08-08] MEDS ORDERED: IBUP-1955 PO (17:23)
[2017-08-08] MEDS ORDERED: SULF1TAB3 PO (17:23)
[2017-08-08] MEDS ORDERED: ACET-2605 PO (17:23)
[2017-08-08] MEDS ORDERED: CEPH500C2 PO (17:23)
[2017-08-08] MEDS ORDERED: CALC-7 PO (17:23)
[2017-08-08] MEDS ORDERED: CHOL50004 PO (17:25)
[2017-08-08] MEDS ORDERED: IV NS 0.9% 500 ML BAG IV ONE (17:30)
[2017-08-08] MEDS ORDERED: IBUPROFEN 600 MG TABLET PO PRN (18:30)
[2017-08-08] MEDS ORDERED: MAGNESIUM HYDROXIDE 30 ML UDC PO PRN (18:30)
[2017-08-08] MEDS ORDERED: ONDANSETRON HCL/PF 4 MG/2 ML VIAL IVP PRN (18:30)
[2017-08-08] MEDS ORDERED: ZOLPIDEM TARTRATE 5 MG TABLET PO PRN (18:30)
[2017-08-08] MEDS ORDERED: HYDROCODONE/APAP 5/325MG 1 EACH TABLET PO PRN (18:30)
[2017-08-08] MEDS ORDERED: Z GUARD REMEDY 2 OZ OINT TP PRN (18:30)
[2017-08-08] MEDS: ESCITALOPRAM OXALATE (10 MG) 10 MG TABLET PO SCH (19:00)
[2017-08-08] MEDS ORDERED: IV NS 0.9% 1,000 ML IV PRN (19:00)
--- NOTE | 2017-08-08 19:09 | NUR ---
MS RN ADMITTING NOTES PATIENT ARRIVED TO UNIT VIA WHEELCHAIR ACCOMPANIED BY E.R TRANSPORTER AND PT'S SON. A/O X 4. FARSI SPEAKING, DENIES PAIN OR DISCOMFORTS AT THIS TIME. PT ORIENTED TO UNIT. PT WITH DIAGNOSIS OF ABDOMINAL PAIN. V/S TAKEN AND RESULTS GIVEN TO SUPPORT ARCHITECT TO DOCUMENT. PT PLACED ON 02 VIA N/C AT 2LPM, TOLERATING WITH NO SOB NOTED. WITH IV ACCESS ON RIGHT AC G #18, INTACT AND PATENT. SAFETY MEASURES INITIATED. HOB ELEVATED. BED IN LOW/LOCKED POSITION. BED ALARM ON. CALL LIGHT WITHIN REACH. ENDORSED TO SUPPORT ARCHITECT NURSE TO COMPLETE THE ASSESSMENT AND ADMISSION PROCESS.
--- NOTE | 2017-08-08 19:25 | NUR ---
RN INITIAL NOTES: RECEIVED REPORT FROM RO OJEDA, PT IN BED, AWAKE, A/O X2-3 ON 2L OXYGEN VIA NC, RESPIRATION EVEN AND UNLABORED, SON MET AT BED SIDE, PT IS FARSI SPEAKING ONLY, SON IS REQUESTING TO STAY OVERNIGHT TO HELP TAKE CARE OF HIS MOTHER, HE CLAIMED THAT ONCE HE LEAVE HIS MOM WILL KEEP CALLING AND WILL TRY GETTING OUT OF BED FREQUENTLY. IV ACCESS ON RIGHT AC PATENT AND FLUSHING WELL, INFUSING WITH NS AT 100ML/HR. SKIN ASSESSMENT PERFORMED, NO SKIN ISSUES NOTED, NO REDNESS OR EXCORIATION ON SACRAL OR PERINEAL AREA NOTED, NO OPEN WOUND, ONLY RIGHT KNEE BRUISE/SWELLING NOTED, UPON X RAY OF RIGHT KNEE, NO FRACTURE NOTED, S/P SURGERY. BLE OFFLOADED. VS TAKEN AND RECORDED, INVENTORY OF BELONGINGS COMPLETED BY DRAFTING DETAILER. ORIENTED PT AND SON TO USE OF CALL LIGHT AND HOURLY ROUNDING, HOSPITAL POLICY. DISCUSSED PLAN OF CARE. SAFETY PRECAUTIONS FOR FALL INITIATED, CALL LIGHT IN REACH, WILL CONTINUE MONITORING PT.
--- NOTE | 2017-08-08 19:30 | NUR ---
RN NOTES: BOX SEALING MACHINE OPERATOR EPIC CURRENTLY IN THE UNIT, TALKING TO PT AND PT'S SON AT BED SIDE FOR TRANSLATE, PER MD REASON WHY HE'S NOT GIVING METFORMIN IS BECAUSE PT IS NPO AT THIS TIME, AND WILL EVALUATE TOMORROW IF PT CAN BE ADVANCE TO HAVE A DIET, ALL HOME MEDICATIONS RECONCILED, WILL START TOMORROW BASED ON PROGRESS PER MD
[2017-08-08 20:00] VITALS: BP 156/74
--- NOTE | 2017-08-08 21:10 | NUR ---
RN NOTES: MOVED PT TO 314-2, SON AT BED SIDE, ALSO SON WILL BE STAYING 24/ TO HELP TAKE CARE OF HIS MOM, THE MOM IS TRYING TO GET OUT OF BED MULTIPLE TIMES, SON IS WILLING TO STAY, INFORMED IMPORT CLERK TITA LACKEYAY TO STAY TONPATSY
--- NOTE | 2017-08-08 21:30 | NUR ---
RN NOTES: PT'S SON STATED HE WILL GO HOME FOR A WHILE, TO EAT AND CHANGED, HE BROUGHT ALL BELONGINGS OF THE PT AND PT'S HOME MEDICATIONS. HE STATED HE DOESNT WANT TO LOOSE ANY MEDICINE AND BELONGING OF THE PT THAT'S WHY HE'S TAKING EVERYTHING HOME.
--- NOTE | 2017-08-08 22:12 | NUR ---
blood sugar 81: checked pt's blood sugar at this time, result is 81, no order to do glucose monitoring but pt has hx of dm on metformin during the day, pt is npo.
[2017-08-08] MEDS ORDERED: DEXTROSE 50%-WATER 50 ML DISP.SYRIN IV PRN (22:30)
[2017-08-08] MEDS ORDERED: INSULIN REGULAR, HUMAN 100 UNIT/ML 3 ML VIAL SQ PRN (22:30)
[2017-08-08] MEDS: ATORVASTATIN 10 MG TABLET PO SCH (23:13)
[2017-08-09] MEDS ORDERED: IV D5/0.45 NACL 1,000 ML IV ONE
[2017-08-09] MEDS ORDERED: BLOOD SUGAR DIAGNOSTIC 1 EACH STRIP IN SCH
[2017-08-09] MEDS ORDERED: DEXTROSE 50%-WATER 50 ML DISP.SYRIN IV PRN
--- NOTE | 2017-08-09 | NUR ---
RN NOTES: SEEN PT SLEEPING AT THIS TIME, NO FACIAL GRIMACE NOTED, RESPIRATION EVEN AND UNLABORED
[2017-08-09] MEDS: BLOOD SUGAR DIAGNOSTIC 1 EACH STRIP IN SCH ×5 (00:33→22:08)
--- NOTE | 2017-08-09 06:10 | NUR ---
PT BS IS 132. INSULIN NOT GIVEN , PT ON NPO
[2017-08-09 06:55] LABS: BASOPHILS % (AUTO) 0.3 % (0.0-2.0); EOSINOPHILS % (AUTO) 3.2 % (0.0-6.0); HEMATOCRIT 33 % (33-45); HEMOGLOBIN 10.9 g/dL (11.5-14.8); LYMPHOCYTES # (AUTO) 1.9 /CMM (0.8-4.8); LYMPHOCYTES % (AUTO) 35.5 % (20.0-44.0); MEAN CORPUSCULAR HGB CONC 33 g/dl (31.0-36.0); MEAN CORPUSCULAR VOLUME 93 fL (82-100); MONOCYTES # (AUTO) 0.3 /CMM (0.1-1.30); MONOCYTES % (AUTO) 6.6 % (2.0-12.0); NEUTROPHILS # (AUTO) 2.9 /CMM (1.8-8.9); NEUTROPHILS % (AUTO) 54.4 % (43.0-81.0); PLATELET COUNT (AUTO) 165 /CMM (150-450); RDW COEFFICIENT OF VARIATION 14.3 (11.5-15.0); RED BLOOD CELL COUNT(AUTO) 3.52 MIL/uL (4.0-5.2); WHITE BLOOD COUNT (AUTO) 5.3 K/uL (4.3-11.0)
--- NOTE | 2017-08-09 07:01 | NUR ---
MS RN CLOSING NOTES PT IN BED, AWAKE, A/O X2-3 ON 2L OXYGEN VIA NC, RESPIRATION EVEN AND UNLABORED, SON AT BED SIDE, PT IS FARSI SPEAKING ONLY. IV ACCESS ON RIGHT AC PATENT AND FLUSHING WELL, INFUSING WITH D5 1/2 NS AT 100ML/HR.RIGHT KNEE BRUISE/SWELLING NOTED, S/P SURGERY. BLE OFFLOADED. VS ARE STABLE. DISCUSSED PLAN OF CARE. SAFETY PRECAUTIONS FOR FALL INITIATED, CALL LIGHT IN REACH.WILL ENDORSE TO DAY SHIFT FOR ROSA .
[2017-08-09 07:07] LABS: CALCIUM, SERUM 8.7 mg/dL (8.5-10.1); CARBON DIOXIDE 28 mmol/L (21-32); CHLORIDE 103 mmol/L (98-107); CREATININE 1.1 mg/dL (0.6-1.3); GLUCOSE 136 mg/dL (74-106); MAGNESIUM 1.4 mg/dL (1.8-2.4); PHOSPHORUS 3.8 mg/dL (2.5-4.9); SODIUM SERUM 140 mmol/L (136-145); UREA NITROGEN, BLOOD 12 mg/dL (7-18)
--- NOTE | 2017-08-09 07:15 | NUR ---
MS/RN OPENING NOTE PATIENT IN BED AWAKE. ALERT AND ORIENTED X3 AND SPEAKS FARSI. SON AT THE BEDSIDE AND TRANSLATING. PATIENT DENIES PAIN. RESPIRATION REGULAR AND UNLABORED. DENIES SOB. PATIENT NPO EXCEPT MEDICATIONS. ABDOMEN SOFT AND NON-DISTENDED. RAC G 18 PATENT AND IV INFUSING WITH NO S/S INFILTRATION. BED LOW AND LOCKED. SIDE RAILS UP X3. CALL LIGHT WITHIN REACH. WILL CONTINUE TO MONITOR.
[2017-08-09 07:28] LABS: CHOLESTEROL 122 mg/dL (<200); HDL CHOLESTEROL 47 mg/dL (40-60); LDL 61 mg/dL (0-99); TRIGLYCERIDES 115 mg/dL (30-150)
[2017-08-09 08:00] VITALS: BP 159/69
[2017-08-09] MEDS ORDERED: Medication Not On Formulary EA (Omega-3 Acid Ethyl Esters (Lovaza) 1 GM) PO SCH (09:00)
[2017-08-09] MEDS: METFORMIN 500 MG TABLET PO SCH ×2 (09:00→17:12)
[2017-08-09] MEDS ORDERED: IV NS 0.9% 1,000 ML BAG IV SCH (09:00)
[2017-08-09] MEDS: CALCIUM CARB 250MG /VITAMIN D 1 UDTAB PO SCH (09:56)
[2017-08-09] MEDS: CHOLECALCIFEROL 1,000 UNIT TABLET (VIT D3) PO SCH (09:56)
[2017-08-09] MEDS: OXYBUTYNIN CHLORIDE 5 MG TABLET PO SCH ×2 (09:57→17:12)
[2017-08-09] MEDS: GLIMEPIRIDE 4 MG TABLET PO SCH ×2 (09:58→17:12)
--- NOTE | 2017-08-09 11:40 | NUR ---
FORTUNATO consult requested by pt's LYNETTE Hatch in regards to DPOA. FORTUNATO met with pt's son Fox Story by the nurses station. According to Fox, pt and his brother Yessenia live with him. However, Fox and his sisters and brother Yessenia (also caregiver for the pt) do not seem to get along and have pending court case involved. Fox was asking SW if pt's leg is fractured. FORTUNATO informed him that she is unable to give out any information to him unless he is the DPOA and if the pt. is okay with giving her information. FORTUNATO informed Fox she will speak with the pt. and his brother Yessenia, who is bedside. FORTUNATO met with pt. and her son Yessenia. Yessenia informed SW that his sister took signature from her mom and sold her house and kicked pt. and him out. Since then, they have been living with pt's other son Fox in his three bedroom home with his two children and pets. Pt. and her son Yessenia sleep on the couch. Yessenia informed SW that he is the DPOA and will bring a copy and give it to LYNETTE Hatch. Yessenia is also the [facility] caregiver for the pt. Yessenia informed SW that Fox saw the pt. fall from the couch and refused to offer any assistance or concerns. Yessenia stated that he is like a slave in the house taking care of July two children, cooking and grocery shopping. Pt. and Yessenia are going to be leaving at the end of the month and move into a one bedroom apartment. Pt. is Farsi speaking and Yessenia was assisting in translation. Pt. also stated that her other son Fox doesn't care about her and she appears to be more of a burden to him. She stated he often says, " when is she going to ." FORTUNATO updated LYNETTE Hatch and ALONSO Frances with the aforementioned information. FORTUNATO also updated director of casework services Nelsy Preciado and informed her that Pt's son Yessenia is the DPOA and he is on his way to bring a copy of the document. No information should be shared with Fox Staley. FORTUNATO placed a copy of Fox's drivers licence in pt's chart.
[2017-08-09] MEDS: Magnesium 1GM/D5W 100ML PREMIX 100 ML IV SCH ×4 (11:54→15:45)
[2017-08-09] MEDS ORDERED: Magnesium 1GM/D5W 100ML PREMIX 100 ML IV SCH (12:30)
--- NOTE | 2017-08-09 12:55 | NUR ---
MS/RN NOTE PATIENT IS SEEN BY DR EDMOND WITH NEW DIET ORDER. READ BACK, VERIFIED, NOTED AND CARRIED OUT.
--- NOTE | 2017-08-09 12:59 | NUR ---
MS/RN NOTE BLOOD SUGAR 160. PATIENT REFUSED INSULIN COVERAGE DESPITE EXPLAINING RISKS AND BENEFITS MULTIPLE TIMES.
--- NOTE | 2017-08-09 14:00 | NUR ---
MS/RN NOTE SON FAM PROVIDED DOPA PAPERS. SHOWED THE PAPERS TO CAMPUS DIRECTOR JACKIE AND QUALITY CONTROL SCIENTIST EARLE AND THEY BOTH STATED THAT THE PAPER IS LEGAL TO USE.
[2017-08-09 16:00] VITALS: BP 156/72
--- NOTE | 2017-08-09 16:36 | NUR ---
MS/RN NOTE PER DR EDMOND ORDER DIET IS ADVANCED TOLERATED.
[2017-08-09] MEDS: ACETAMINOPHEN 325 MG TABLET PO PRN (16:48)
[2017-08-09] MEDS: INSULIN REGULAR, HUMAN 100 UNIT/ML 3 ML VIAL SQ PRN (17:30)
[2017-08-09] MEDS: ESCITALOPRAM OXALATE (10 MG) 10 MG TABLET PO SCH (17:39)
--- NOTE | 2017-08-09 18:47 | NUR ---
MS/RN CLOSING NOTE PATIENT ALERT AND ORIENTED X4. FARSI SPEAKING. SON AT THE BEDSIDE. PATIENT DENIES SOB. RESPIRATION REGULAR AND UNLABORED. DENIES PAIN. RAC G 18 PATENT AND SALINE LOCKED. PATIENT INCONTINENT AND GOOD PERICARE RENDERED. BED LOW AND LOCKED. SIDE RAILS UP X3. CALL LIGHT WITHIN REACH. WILL ENDORSE TO LOCAL INTERMODAL TRUCK DRIVER.
--- NOTE | 2017-08-09 19:45 | NUR ---
MS LYNETTE OPENING NOTES PT IN BED, A/O X4, SON AT THE BED SIDE. PT ON O2 VIA NC 2.0 L. NO DISTRESS OR COMPLAIN OF PAIN AT THIS TIME. PT ON CLEAR LIQUID DIET.PT IV LINE PATENT AND INTACT, ONGOING D5 1/2 NS AT 100ML/HR. BED IN LOWEST POSITION , CALL LIGHT WITHIN REACH. NEEDS ATTENDED. WILL CONTINUE TO MONITOR. Addendum: 08/10/17 at 0005 by MYRTLE PATEL RN PT ON FULL LIQUID DIET.IV FLUID D/C.
[2017-08-09 20:00] VITALS: BP 127/62
--- NOTE | 2017-08-09 20:00 | NUR ---
RN NOTES: CHANGED PT'S DIAPER PT VOIDED AT THIS TIME. WASHED WITH SOAP AND WATER PAT DRY Z GUARD APPLIED AND MEPILEX PROTECTION.
--- NOTE | 2017-08-09 22:00 | NUR ---
RN NOTES: SON STEP OUT STATED HE WILL GO HOME AND JUST COME BACK TOMORROW AM, HE STATED WE CAN CALL HIM ANYTIME IF NEEDED. PT'S BED ALARM SECURED, BED IN LOWEST POSITION, BED ALARM SECURED, RN TO SIT OUTSIDE THE ROOM. WILL CONTINUE MONITORING PT.
[2017-08-09] MEDS: ATORVASTATIN 10 MG TABLET PO SCH (22:09)
--- NOTE | 2017-08-10 01:22 | NUR ---
RN NOTES: PT SLEEPING AT THIS TIME, REMAINS ON 2L OXYGEN VIA NC, RESPIRATION EVEN AND UNLABORED, SON AT BED SIDE
[2017-08-10] MEDS: BLOOD SUGAR DIAGNOSTIC 1 EACH STRIP IN SCH ×2 (05:43→11:28)
--- NOTE | 2017-08-10 07:00 | NUR ---
MS RN CLOSING NOTES PT IN BED, A/O X4, SON AT THE BED SIDE. PT ON O2 VIA NC 2.0 L.RESPIRATION REGULAR AND UNLABORED, NO SOB NOTED. PT ON FULL LIQUID DIET.PT IV LINE RAC G18 PATENT AND INTACT BED IN LOWEST POSITION , CALL LIGHT WITHIN REACH. NEEDS ATTENDED. WILL ENDORSE TO DAY SHIFT NURSE FOR ROSA .
[2017-08-10 07:09] LABS: BASOPHILS % (AUTO) 0.4 % (0.0-2.0); EOSINOPHILS % (AUTO) 4.9 % (0.0-6.0); HEMATOCRIT 32 % (33-45); HEMOGLOBIN 10.8 g/dL (11.5-14.8); LYMPHOCYTES # (AUTO) 1.7 /CMM (0.8-4.8); LYMPHOCYTES % (AUTO) 34.6 % (20.0-44.0); MEAN CORPUSCULAR HGB CONC 34 g/dl (31.0-36.0); MEAN CORPUSCULAR VOLUME 93 fL (82-100); MONOCYTES # (AUTO) 0.3 /CMM (0.1-1.30); MONOCYTES % (AUTO) 7.2 % (2.0-12.0); NEUTROPHILS # (AUTO) 2.6 /CMM (1.8-8.9); NEUTROPHILS % (AUTO) 52.9 % (43.0-81.0); PLATELET COUNT (AUTO) 165 /CMM (150-450); RDW COEFFICIENT OF VARIATION 14.1 (11.5-15.0); RED BLOOD CELL COUNT(AUTO) 3.44 MIL/uL (4.0-5.2); WHITE BLOOD COUNT (AUTO) 4.8 K/uL (4.3-11.0)
--- NOTE | 2017-08-10 07:14 | NUR ---
MS/RN OPENING NOTE PATIENT ALERT AND ORIENTED X4. DENIES SOB. RESPIRATION REGULAR AND UNLABORED. PATIENT IN NO APPARENT DISTRESS. DENIES PAIN. RAC G 18 PATIENT AND SALINE LOCKED. ABDOMEN SOFT AND NON-DISTENDED. BED LOW AND LOCKED. SIDE RAILS UP X3. CALL LIGHT WITHIN REACH.
[2017-08-10 07:23] LABS: CALCIUM, SERUM 9.1 mg/dL (8.5-10.1); CARBON DIOXIDE 31 mmol/L (21-32); CHLORIDE 104 mmol/L (98-107); GLUCOSE 72 mg/dL (74-106); MAGNESIUM 1.8 mg/dL (1.8-2.4); POTASSIUM 4.3 mmol/L (3.5-5.1); SODIUM SERUM 140 mmol/L (136-145); UREA NITROGEN, BLOOD 10 mg/dL (7-18)
[2017-08-10] MEDS: CALCIUM CARB 250MG /VITAMIN D 1 UDTAB PO SCH (08:45)
[2017-08-10] MEDS: OXYBUTYNIN CHLORIDE 5 MG TABLET PO SCH (08:45)
[2017-08-10] MEDS: GLIMEPIRIDE 4 MG TABLET PO SCH (08:45)
[2017-08-10] MEDS: CHOLECALCIFEROL 1,000 UNIT TABLET (VIT D3) PO SCH (08:45)
[2017-08-10] MEDS: METFORMIN 500 MG TABLET PO SCH (08:46)
[2017-08-10] MEDS: ACETAMINOPHEN 325 MG TABLET PO PRN (09:22)
[2017-08-10] MEDS: INSULIN REGULAR, HUMAN 100 UNIT/ML 3 ML VIAL SQ PRN (12:15)
--- NOTE | 2017-08-10 13:50 | NUR ---
MS/RN CLOSING NOTE PATIENT ALERT AND ORIENTED X4. DISCHARGE EDUCATIONS/INSTRUCTIONS GIVEN TO THE PATIENT AND THE SON. THEY VERBALIZED UNDERSTANDING. IV LINE REMOVED. NO BLEEDING AND NO S/S INFECTION NOTED. PATIENT DENIES PAIN. RESPIRATION REGULAR AND UNLABORED. DENIES SOB. PATIENT LEAVING THE HOSPITAL IN STABLE CONDITION AND WITH SON.
[2017-11-01] MEDS ORDERED: LEVO500T75 PO (09:32)
== END 2017-08-10 14:03 | disposition home or self-care (01) | DRG 391 ==
LOC: ER 13:53 → MED 17:53
PROVIDERS: ADMIT Family Medicine; ATTEND Family Medicine
DX: A08.4 Viral intestinal infection, unspecified (principal); N17.0 Acute kidney failure with tubular necrosis; E44.1 Mild protein-calorie malnutrition; E78.5 Hyperlipidemia, unspecified; E11.9 Type 2 diabetes mellitus without complications; E66.9 Obesity, unspecified; E83.42 Hypomagnesemia; I10 Essential (primary) hypertension; Z79.84 Long term (current) use of oral hypoglycemic drugs; E88.09 Other disorders of plasma-protein metabolism, not elsewhere classified; Z68.28 Body mass index [BMI] 28.0-28.9, adult; Z91.81 History of falling; D63.8 Anemia in other chronic diseases classified elsewhere
CPT/HCPCS: 36415; 70450-TC; 71045-TC; 73560-TC; 80048-TC; 80061-TC; 80076-TC; 81000-TC; 82962-TC; 83735-TC; 84100-TC; 84484-TC; 85025-TC; 85730-TC; 87081-TC; A4606; J1815; J2405; J3475; J3490; J7030; J7040; Z7610

== ENCOUNTER 2017-08-12 14:15 | Outpatient (CLI) | payer MEDICARE, OTHER ==
[~2017-08-12 14:15] MED LIST changes: +ACET-2605 PO; -CALC-10 PO; +CALC-7 PO; -CARV3.122 PO; +CHOL50004 PO; -GABA-532 PO; +IBUP-1955 PO; -MECL-102 PO; -METF-442 PO; +METF10004 PO; -PANT40TA2 PO
[2017-08-12 14:18] VITALS: BP 126/66
== END 2017-08-12 23:59 | disposition home or self-care (01) ==
LOC: MSC 14:15
PROVIDERS: ATTEND Internal Medicine
DX: K29.70 Gastritis, unspecified, without bleeding (principal); E11.22 Type 2 diabetes mellitus with diabetic chronic kidney disease; I12.9 Hypertensive chronic kidney disease with stage 1 through stage 4 chronic kidney disease, or unspecified chronic kidney disease; N18.9 Chronic kidney disease, unspecified; E44.0 Moderate protein-calorie malnutrition; D63.8 Anemia in other chronic diseases classified elsewhere; E66.8 Other obesity; E78.5 Hyperlipidemia, unspecified; E55.9 Vitamin D deficiency, unspecified; G62.9 Polyneuropathy, unspecified

== ENCOUNTER 2017-10-29 14:51 | Inpatient (IN) | payer MEDICARE, OTHER ==
[~2017-10-29] VITALS: Ht 152.4 cm; Wt 78.5 kg
--- NOTE | 2017-10-29 15:05 | NUR ---
PT BIB FAMILY TO ER BED 13. HERE FOR FURTHER EVAL FOR POSSIBLE PNEUMONIA S/P XRAY DONE AT PMD. PT IS C/O ABDOMINAL PAIN AND IS CONSTIPATED. PLACED ON MONITOR. VSS. AWAITING MD ONEIL.
--- NOTE | 2017-10-29 15:25 | NUR ---
DR BYNUM AT BEDSIDE FOR EVAL.
--- NOTE | 2017-10-29 15:40 | NUR ---
IV LINE STARTED BLOOD DRAWN AND SENT TO LAB.
[2017-10-29 15:46] LABS: BASOPHILS % (AUTO) 0.4 % (0.0-2.0); EOSINOPHILS % (AUTO) 0.7 % (0.0-6.0); HEMATOCRIT 34 % (33-45); HEMOGLOBIN 11.4 g/dL (11.5-14.8); LYMPHOCYTES # (AUTO) 0.8 /CMM (0.8-4.8); LYMPHOCYTES % (AUTO) 12.1 % (20.0-44.0); MEAN CORPUSCULAR HEMOGLOBIN 29 PG (26.0-33.0); MEAN CORPUSCULAR HGB CONC 33 g/dl (31.0-36.0); MEAN CORPUSCULAR VOLUME 88 fL (82-100); MONOCYTES # (AUTO) 0.1 /CMM (0.1-1.30); MONOCYTES % (AUTO) 1.6 % (2.0-12.0); NEUTROPHILS # (AUTO) 5.9 /CMM (1.8-8.9); NEUTROPHILS % (AUTO) 85.2 % (43.0-81.0); PLATELET COUNT (AUTO) 199 /CMM (150-450); RDW COEFFICIENT OF VARIATION 13.6 (11.5-15.0); RED BLOOD CELL COUNT(AUTO) 3.89 MIL/uL (4.0-5.2); WHITE BLOOD COUNT (AUTO) 6.8 K/uL (4.3-11.0)
[2017-10-29 16:00] LABS: INR 0.98 (0.85-1.15)
[2017-10-29 16:07] LABS: CALCIUM, SERUM 9.2 mg/dL (8.5-10.1); CARBON DIOXIDE 29 mmol/L (21-32); CHLORIDE 99 mmol/L (98-107); CREATININE 1.7 mg/dL (0.6-1.3); GLUCOSE 155 mg/dL (74-106); POTASSIUM 4.2 mmol/L (3.5-5.1); SODIUM SERUM 138 mmol/L (136-145); UREA NITROGEN, BLOOD 39 mg/dL (7-18)
[2017-10-29 16:14] LABS: ALANINE AMINOTRANSFERASE 24 U/L (12-78); ALBUMIN 3.6 g/dL (3.4-5.0); ALKALINE PHOSPHATASE 40 U/L (46-116); ASPARTATE AMINOTRANSFERASE 27 U/L (15-37); BILIRUBIN,DIRECT 0.1 mg/dL (0.0-0.2); BILIRUBIN,TOTAL 0.5 mg/dL (0.2-1.0); TOTAL PROTEIN, SERUM 7.7 g/dL (6.4-8.2); TROPONIN I < 0.017 ng/mL (0.00-0.056)
[2017-10-29] MEDS ORDERED: SPIR25TA PO (18:57)
[2017-10-29] MEDS ORDERED: CEFEPIME 1 GM in IV D5W 50 ML IV ONE (19:00)
[2017-10-29] MEDS ORDERED: VANCOMYCIN 1 GM in IV D5W 250 ML IV ONE (19:00)
[2017-10-29] MEDS: IV NS 0.9% 1,000 ML BAG IV ONE ×2 (19:15→19:25)
[2017-10-29] MEDS ORDERED: IBUPROFEN 600 MG TABLET PO PRN (19:30)
[2017-10-29] MEDS ORDERED: MAGNESIUM HYDROXIDE 30 ML UDC PO PRN (19:30)
[2017-10-29] MEDS ORDERED: HYDROCODONE/APAP 5/325MG 1 EACH TABLET PO PRN (19:30)
[2017-10-29] MEDS ORDERED: ONDANSETRON HCL/PF 4 MG/2 ML VIAL IVP PRN (19:30)
[2017-10-29] MEDS ORDERED: MAG HYDROX/AL HYDROX/SIMETH 30 ML UDC PO PRN (19:30)
[2017-10-29] MEDS ORDERED: DEXTROSE 50%-WATER 50 ML DISP.SYRIN IV PRN (19:30)
[2017-10-29] MEDS ORDERED: Z GUARD REMEDY 2 OZ OINT TP PRN (19:30)
[2017-10-29] MEDS ORDERED: ALBUTEROL FS 2.5 MG/0.5 ML VIAL.NEB NEB PRN (19:30)
--- NOTE | 2017-10-29 19:45 | NUR ---
CALLED NURSING SUP REQUESTED TELE BED FOR THIS PATIENT.
--- NOTE | 2017-10-29 20:15 | NUR ---
REPORT GIVEN TO WARREN OJEDA. PT AWAITING TRANSFER TO FLOOR.
--- NOTE | 2017-10-29 20:41 | NUR ---
PT IS ASSIGNED TO [facility]#: [id number], Dx: PNEUMONIA, AND ACCEPTING MD: DR CHAVARRIA.
[2017-10-29 22:04] VITALS: BP 140/68
[2017-10-29] MEDS: BLOOD SUGAR DIAGNOSTIC 1 EACH STRIP VI SCH (22:11)
[2017-10-29] MEDS: ATORVASTATIN 10 MG TABLET PO SCH (22:15)
[2017-10-29] MEDS: *INSULIN REGULAR(HUMULIN R)HUM 100 UNIT/ML VIAL SQ PRN (22:16)
[2017-10-30] VITALS: BP 99/35
[2017-10-30 04:00] VITALS: BP 132/58
[2017-10-30 06:33] LABS: BASOPHILS % (AUTO) 0.2 % (0.0-2.0); HEMATOCRIT 32 % (33-45); HEMOGLOBIN 10.5 g/dL (11.5-14.8); LYMPHOCYTES # (AUTO) 0.6 /CMM (0.8-4.8); LYMPHOCYTES % (AUTO) 10.8 % (20.0-44.0); MEAN CORPUSCULAR HEMOGLOBIN 30 PG (26.0-33.0); MEAN CORPUSCULAR HGB CONC 33 g/dl (31.0-36.0); MEAN CORPUSCULAR VOLUME 91 fL (82-100); MONOCYTES # (AUTO) 0.2 /CMM (0.1-1.30); MONOCYTES % (AUTO) 3.7 % (2.0-12.0); NEUTROPHILS % (AUTO) 85.3 % (43.0-81.0); PLATELET COUNT (AUTO) 167 /CMM (150-450); RDW COEFFICIENT OF VARIATION 13.6 (11.5-15.0); RED BLOOD CELL COUNT(AUTO) 3.51 MIL/uL (4.0-5.2); WHITE BLOOD COUNT (AUTO) 5.9 K/uL (4.3-11.0)
[2017-10-30 06:45] LABS: CALCIUM, SERUM 8.6 mg/dL (8.5-10.1); CARBON DIOXIDE 25 mmol/L (21-32); CHLORIDE 100 mmol/L (98-107); CREATININE 1.6 mg/dL (0.6-1.3); GLUCOSE 327 mg/dL (74-106); PHOSPHORUS 3.8 mg/dL (2.5-4.9); POTASSIUM 4.2 mmol/L (3.5-5.1); SODIUM SERUM 136 mmol/L (136-145); UREA NITROGEN, BLOOD 34 mg/dL (7-18)
[2017-10-30 06:47] LABS: MAGNESIUM 1.2 mg/dL (1.8-2.4)
--- NOTE | 2017-10-30 07:30 | NUR ---
RN OPENING/TELE NOTES RECEIVED PT. IN BED A&OX4. BREATHING UNLABORED AND EVENLY ON OXYGEN AT 3L/MIN VIA NASAL CANNULA. NO S/S OF ACUTE DISTRESS. IV ACCESS IS INTACT AND PATENT ON LEFT ANTECUBITAL SITE. BED IS IN LOWEST, AND LOCKED POSITION. 2 SIDE RAILS UP, AND INSTRUCTED PT. TO USE CALL LIGHT FOR ASSISTANCE. ALL NEEDS MET, WILL CONTINUE TO ASSESS AND MONITOR.
[2017-10-30 08:00] VITALS: BP 131/58
[2017-10-30] MEDS: BLOOD SUGAR DIAGNOSTIC 1 EACH STRIP VI SCH ×4 (08:10→21:13)
[2017-10-30] MEDS: INSULIN REGULAR, HUMAN 100 UNIT/ML 3 ML VIAL SQ PRN ×3 (08:16→17:55)
[2017-10-30] MEDS: CALCIUM CARB 250MG /VITAMIN D 1 UDTAB PO SCH (08:31)
[2017-10-30] MEDS: SPIRONOLACTONE 25 MG TABLET PO SCH (08:31)
[2017-10-30] MEDS: CHOLECALCIFEROL 1,000 UNIT TABLET (VIT D3) PO SCH (08:33)
[2017-10-30] MEDS: CEFTRIAXONE 1 G in IV D5W 50 ML IV SCH (08:36)
[2017-10-30] MEDS: ACETAMINOPHEN 325 MG TABLET PO PRN (08:56)
[2017-10-30] MEDS ORDERED: METFORMIN 500 MG TABLET PO SCH (09:00)
[2017-10-30] MEDS ORDERED: Medication Not On Formulary EA (Omega-3 Acid Ethyl Esters (Lovaza) 1 GM) PO SCH (09:00)
--- NOTE | 2017-10-30 09:00 | NUR ---
PT. WAS SEEN AND EXAMINED BY DR. CHAVARRIA.
[2017-10-30] MEDS: Magnesium 1GM/D5W 100ML PREMIX 100 ML IV SCH ×2 (11:41→12:40)
[2017-10-30 12:00] VITALS: BP 100/48
[2017-10-30 16:00] VITALS: BP 112/56
[2017-10-30] MEDS ORDERED: GLIM2TAB2 PO (16:46)
[2017-10-30] MEDS: ESCITALOPRAM OXALATE (10 MG) 10 MG TABLET PO SCH (17:57)
--- NOTE | 2017-10-30 18:58 | NUR ---
RN CLOSING/TELE NOTES PT. IN BED A&OX4 WITH HER SON AT BEDSIDE. BREATHING UNLABORED AND EVENLY ON OXYGEN AT 3L/MIN VIA NASAL CANNULA. NO S/S OF ACUTE DISTRESS. IV ACCESS IS INTACT AND PATENT ON LEFT ANTECUBITAL SITE. URINE SAMPLE COLLECTED CLEAN CATCH. BED IS IN LOWEST, AND LOCKED POSITION. 2 SIDE RAILS UP, AND INSTRUCTED PT. TO USE CALL LIGHT FOR ASSISTANCE. ALL NEEDS MET, WILL ENDORSE REPORT TO NURSE.
[2017-10-30 20:00] VITALS: BP 116/58
--- NOTE | 2017-10-30 20:00 | NUR ---
RECEIVED PATIENT IN BED, VSS AFEBRILE ON 3 L NC , NO DISTRESS NOTED. PATIENT IS FORGETFUL, SLOVENIAN SPEAKING ONLY.SON AT THE BED SIDE. EDUCATION/INSTRUCTION IS GIVEN TO THE SON, QUESTIONS ANSWERED
[2017-10-30] MEDS: ATORVASTATIN 10 MG TABLET PO SCH (21:14)
[2017-10-30] MEDS: *INSULIN REGULAR(HUMULIN R)HUM 100 UNIT/ML VIAL SQ PRN (21:17)
[2017-10-31] VITALS (8 sets, daily range): BP systolic 106–147; BP diastolic 37–66
[2017-10-31 08:00] LABS: APPEARANCE,URINE SL CLOUDY (CLEAR); BILIRUBIN,URINE NEGATIVE (NEGATIVE); BLOOD, URINE NEGATIVE Ery/uL (NEGATIVE); COLOR,URINE YELLOW (YELLOW); KETONES,URINE NEGATIVE (NEGATIVE); LEUKOCYTE ESTERASE ,URINE NEGATIVE (NEGATIVE); NITRITE, URINE NEGATIVE (NEGATIVE); PROTEIN,URINE NEGATIVE (NEGATIVE); UGLUCOSE TRACE mg/dL (NEGATIVE); UROBILINOGEN,URINE 0.2 EU/dL (0.2)
--- NOTE | 2017-10-31 08:00 | NUR ---
RN NOTES RECEIVED PT. IN BED A&OX3. BREATHING UNLABORED ON ROOM AIR SATURATING AT 92%,NO S/S OF ACUTE DISTRESS. AFEBRILE AT 98.3, PATIENT REFUSED TO BE PLACED ON TELE MONITOR, SKIN WARM TO TOUCH, IV ACCESS OJN THE RIGHT ARM INTACT AND PATENT UPON FLUSHING. BED IS IN LOWEST, AND LOCKED POSITION. 2 SIDE RAILS UP, AND INSTRUCTED PT. TO USE CALL LIGHT FOR ASSITANCE, WILL CONTINUE TO ASSESS AND MONITOR.
[2017-10-31 08:10] LABS: BACTERIA,URINE Few /HPF (None Seen); RBC,URINE 0-2 /HPF (0-2); WBC,URINE 0-2 /HPF (0-3)
[2017-10-31] MEDS: BLOOD SUGAR DIAGNOSTIC 1 EACH STRIP VI SCH ×4 (09:07→21:14)
[2017-10-31] MEDS: CALCIUM CARB 250MG /VITAMIN D 1 UDTAB PO SCH (09:08)
[2017-10-31] MEDS: CEFTRIAXONE 1 G in IV D5W 50 ML IV SCH (09:08)
[2017-10-31] MEDS: SPIRONOLACTONE 25 MG TABLET PO SCH (09:09)
[2017-10-31] MEDS: CHOLECALCIFEROL 1,000 UNIT TABLET (VIT D3) PO SCH (09:09)
[2017-10-31] MEDS: *INSULIN REGULAR(HUMULIN R)HUM 100 UNIT/ML VIAL SQ PRN ×2 (09:22→21:21)
[2017-10-31] MEDS: INSULIN REGULAR, HUMAN 100 UNIT/ML 3 ML VIAL SQ PRN (12:07)
[2017-10-31 13:37] LABS: BASOPHILS # (AUTO) 0.1 /CMM (0.0-0.2); BASOPHILS % (AUTO) 0.7 % (0.0-2.0); EOSINOPHILS % (AUTO) 0.9 % (0.0-6.0); HEMATOCRIT 33 % (33-45); HEMOGLOBIN 10.4 g/dL (11.5-14.8); LYMPHOCYTES # (AUTO) 2.2 /CMM (0.8-4.8); LYMPHOCYTES % (AUTO) 30.4 % (20.0-44.0); MEAN CORPUSCULAR HEMOGLOBIN 29 PG (26.0-33.0); MEAN CORPUSCULAR HGB CONC 32 g/dl (31.0-36.0); MEAN CORPUSCULAR VOLUME 90 fL (82-100); MONOCYTES # (AUTO) 0.3 /CMM (0.1-1.30); MONOCYTES % (AUTO) 3.7 % (2.0-12.0); NEUTROPHILS # (AUTO) 4.7 /CMM (1.8-8.9); NEUTROPHILS % (AUTO) 64.3 % (43.0-81.0); PLATELET COUNT (AUTO) 189 /CMM (150-450); RDW COEFFICIENT OF VARIATION 14.6 (11.5-15.0); RED BLOOD CELL COUNT(AUTO) 3.62 MIL/uL (4.0-5.2); WHITE BLOOD COUNT (AUTO) 7.3 K/uL (4.3-11.0)
[2017-10-31 13:55] LABS: CALCIUM, SERUM 8.8 mg/dL (8.5-10.1); CARBON DIOXIDE 30 mmol/L (21-32); CHLORIDE 103 mmol/L (98-107); CREATININE 1.1 mg/dL (0.6-1.3); GLUCOSE 219 mg/dL (74-106); MAGNESIUM 1.3 mg/dL (1.8-2.4); PHOSPHORUS 3.6 mg/dL (2.5-4.9); POTASSIUM 3.9 mmol/L (3.5-5.1); SODIUM SERUM 141 mmol/L (136-145); UREA NITROGEN, BLOOD 20 mg/dL (7-18)
[2017-10-31] MEDS: ESCITALOPRAM OXALATE (10 MG) 10 MG TABLET PO SCH (17:30)
--- NOTE | 2017-10-31 19:30 | NUR ---
RN NOTES PT. ENDORSED FOR CONTINUITY OF CARE, BREATHING UNLABORED AND EVEN. ON ROOM AIR SATURATING AT 94%. IV ACCESS IS INTACT AND PATENT ON THE RIGTH ARM.BED IS IN LOWEST, AND LOCKED POSITION. 2 SIDE RAILS UP, AND INSTRUCTED PT. TO USE CALL LIGHT FOR ASSISTANCE. ALL NEEDS MET, WILL ENDORSE REPORT TO NURSE.
--- NOTE | 2017-10-31 19:55 | NUR ---
RN MS INITIAL NOTES RECEIVED PT. IN BED A&OX3. BREATHING UNLABORED ON ROOM AIR SATURATING AT 95%,NO S/S OF ACUTE DISTRESS OR C/O PAIN, SKIN WARM TO TOUCH, IV ACCESS ON THE RIGHT ARM INTACT AND PATENT UPON FLUSHING. BED IS IN LOWEST, AND LOCKED POSITION. 2 SIDE RAILS UP, AND INSTRUCTED PT. TO USE CALL LIGHT FOR ASSISTANCE, WILL CONTINUE TO ASSESS AND MONITOR.
[2017-10-31] MEDS: ATORVASTATIN 10 MG TABLET PO SCH (21:14)
[2017-11-01] VITALS: BP 127/52
[2017-11-01 04:00] VITALS: BP 122/55
--- NOTE | 2017-11-01 06:23 | NUR ---
RN MS CLOSING NOTES ENDORSED PT. IN BED A&OX3. BREATHING UNLABORED ON ROOM AIR SATURATING AT 98%,NO S/S OF ACUTE DISTRESS OR C/O PAIN, SKIN WARM TO TOUCH, IV ACCESS ON THE RIGHT ARM INTACT AND PATENT UPON FLUSHING. BED IS IN LOWEST, AND LOCKED POSITION. 2 SIDE RAILS UP, AND INSTRUCTED PT. TO USE CALL LIGHT FOR ASSISTANCE, WILL CONTINUE TO ASSESS AND MONITOR.
[2017-11-01 06:27] LABS: BASOPHILS % (AUTO) 0.3 % (0.0-2.0); EOSINOPHILS % (AUTO) 1.8 % (0.0-6.0); HEMATOCRIT 33 % (33-45); HEMOGLOBIN 10.9 g/dL (11.5-14.8); LYMPHOCYTES # (AUTO) 2.3 /CMM (0.8-4.8); LYMPHOCYTES % (AUTO) 29.9 % (20.0-44.0); MEAN CORPUSCULAR HEMOGLOBIN 30 PG (26.0-33.0); MEAN CORPUSCULAR HGB CONC 33 g/dl (31.0-36.0); MEAN CORPUSCULAR VOLUME 91 fL (82-100); MONOCYTES # (AUTO) 0.4 /CMM (0.1-1.30); MONOCYTES % (AUTO) 5.9 % (2.0-12.0); NEUTROPHILS # (AUTO) 4.7 /CMM (1.8-8.9); NEUTROPHILS % (AUTO) 62.1 % (43.0-81.0); PLATELET COUNT (AUTO) 184 /CMM (150-450); RDW COEFFICIENT OF VARIATION 14.1 (11.5-15.0); RED BLOOD CELL COUNT(AUTO) 3.64 MIL/uL (4.0-5.2); WHITE BLOOD COUNT (AUTO) 7.6 K/uL (4.3-11.0)
[2017-11-01 06:51] LABS: CALCIUM, SERUM 8.8 mg/dL (8.5-10.1); CARBON DIOXIDE 28 mmol/L (21-32); CHLORIDE 106 mmol/L (98-107); CREATININE 0.9 mg/dL (0.6-1.3); GLUCOSE 150 mg/dL (74-106); SODIUM SERUM 143 mmol/L (136-145); UREA NITROGEN, BLOOD 21 mg/dL (7-18)
[2017-11-01 07:08] LABS: MAGNESIUM 1.2 mg/dL (1.8-2.4)
--- NOTE | 2017-11-01 07:49 | NUR ---
MS RN OPENING NOTES RECEIVED PT FROM NIGHTSHIFT NURSE IN STABLE CONDITION. PT IS A/O X3. NO SOB OR ACUTE SIGNS OF DISTRESS NOTED. BREATHING IS EVEN AND UNLABORED. PT ON RA AND SATING WELL. SHE DENIES ANY PAIN AT THIS TIME. IV TO RIGHT FOREARM NOTED TO BE PATENT AND INTACT. NO REDNESS OR SIGNS OF INFILTRATION NOTED. BED IN LOW LOCKED POSITION, SIDE RAILS UP X2, CALL LIGHT WITHIN REACH. WILL CONTINUE TO MONITOR
[2017-11-01 08:00] VITALS: BP 118/63
[2017-11-01] MEDS: BLOOD SUGAR DIAGNOSTIC 1 EACH STRIP VI SCH ×2 (08:04→12:05)
[2017-11-01] MEDS: SPIRONOLACTONE 25 MG TABLET PO SCH (08:37)
[2017-11-01] MEDS: CALCIUM CARB 250MG /VITAMIN D 1 UDTAB PO SCH (08:37)
[2017-11-01] MEDS: CHOLECALCIFEROL 1,000 UNIT TABLET (VIT D3) PO SCH (08:37)
[2017-11-01] MEDS: CEFTRIAXONE 1 G in IV D5W 50 ML IV SCH (08:38)
[2017-11-01] MEDS: INSULIN REGULAR, HUMAN 100 UNIT/ML 3 ML VIAL SQ PRN ×2 (08:48→12:05)
[2017-11-01] MEDS ORDERED: LEVO500T75 PO (09:32)
[2017-11-01] MEDS: ACETAMINOPHEN 325 MG TABLET PO PRN (09:44)
[2017-11-01] MEDS: Magnesium 1GM/D5W 100ML PREMIX 100 ML IV SCH ×4 (10:40→14:06)
--- NOTE | 2017-11-01 16:25 | NUR ---
MS SODA FOUNTAIN OPERATOR NOTES PT WAS DISCHARGED FROM FACILITY IN STABLE CONDITION. ALL NEEDS WERE MET DURING SHIFT AND ORDERS CARRIED OUT ACCORDINGLY. ALL DUE MEDS GIVEN. MAGNESIUM REPLACED PRIOR TO D/C. IV WAS SUCCESSFULLY REMOVED WITH CATHETER TIP INTACT. BELONGINGS VERIFIED. PT AND PT'S SON REMINDED OF FOLLOW UP CLINIC APPOINTMENT AND GIVEN ABX PRESCRIPTION. D/C INSTRUCTIONS AND EDUCATION PROVIDED UTILIZING EXITCARE MATERIALS. PT AND SON VERBALIZED FULL UNDERSTANDING OF D/C INSTRUCTIONS. PT'S SON SIGNED PT'S FORMS PER PT'S REQUEST. COPIES OF D/C PAPERWORK MADE AND PLACED IN PT'S CHART. VITALS STABLE PRIOR TO D/C. SHE WAS SAFELY WHEELED FROM UNIT TO THE MAIN LOBBY AND LEFT VIA PRIVATE VEHICLE DRIVEN BY HER SON WITH ALL BELONGINGS.
== END 2017-11-01 16:12 | disposition home or self-care (01) | DRG 193 ==
LOC: ER 14:53 → TELE1 20:44 → MEDSG1 10-31 23:55
PROVIDERS: ADMIT Internal Medicine; ATTEND Internal Medicine
DX: J15.9 Unspecified bacterial pneumonia (principal); N17.0 Acute kidney failure with tubular necrosis; E44.0 Moderate protein-calorie malnutrition; J44.0 Chronic obstructive pulmonary disease with (acute) lower respiratory infection; K29.70 Gastritis, unspecified, without bleeding; N18.9 Chronic kidney disease, unspecified; Z79.84 Long term (current) use of oral hypoglycemic drugs; E55.9 Vitamin D deficiency, unspecified; D63.8 Anemia in other chronic diseases classified elsewhere; E78.5 Hyperlipidemia, unspecified; I10 Essential (primary) hypertension; Z96.653 Presence of artificial knee joint, bilateral; Z90.49 Acquired absence of other specified parts of digestive tract; Z79.899 Other long term (current) drug therapy; E11.40 Type 2 diabetes mellitus with diabetic neuropathy, unspecified; E11.22 Type 2 diabetes mellitus with diabetic chronic kidney disease; I12.9 Hypertensive chronic kidney disease with stage 1 through stage 4 chronic kidney disease, or unspecified chronic kidney disease; E66.9 Obesity, unspecified; Z68.33 Body mass index [BMI] 33.0-33.9, adult
CPT/HCPCS: 36415; 71045-TC; 80048-TC; 80076-TC; 81000-TC; 82962-TC; 83605-TC; 83735-TC; 83880; 84100-TC; 84484-TC; 85025-TC; 85730-TC; 87040-TC; 87081-TC; 87086-TC; 97112-TC; 97116-TC; 97530-TC; A4606; J0692; J0696; J1815; J3370; J3475; J7030; J7060; Z7610

== ENCOUNTER 2017-11-04 22:23 | Emergency (ER) | payer MEDICARE, OTHER ==
[~2017-11-04] VITALS: Ht 152.4 cm; Wt 80.3 kg
[~2017-11-04 22:23] MED LIST changes: -ESCI20TA PO; +GLIM2TAB2 PO; -GLIM4TAB2 PO; +LEVO500T75 PO; +METF-442 PO; -METF10004 PO; -OXYB5TAB11 PO; +SPIR25TA PO
--- NOTE | 2017-11-04 22:55 | NUR ---
pt bibfamily, c/o N/V & loss of appetite. was unable to eat all day today. pt was just recently discharged from hospital for PNA. seen by md. waiting for orders. pt in restroom giving urine sample. No s/s of acute distress or sob noted. Pt is a/ox3, verbal, able to make needs known. family at bedside.
--- NOTE | 2017-11-04 23:00 | NUR ---
collected urine sample from pt. Pt returned to bed. No acute distress or sob noted. Pt was able to ambulate with assist to the room. family member at bedside.
[2017-11-04] MEDS ORDERED: ONDANSETRON 4 MG TAB.RAPDIS ONE (23:19)
--- NOTE | 2017-11-04 23:26 | NUR ---
administered po zofran 4mg odt
[2017-11-04] MEDS ORDERED: ONDANSETRON 4 MG TAB.RAPDIS SL ONE (23:30)
--- NOTE | 2017-11-04 23:38 | NUR ---
snacks provided at bedside.
--- NOTE | 2017-11-05 00:07 | NUR ---
Patient discharged to home in stable condition. Written and verbal after care instructions given. Patient verbalizes understanding of instruction. Taken out via [facility] accompanied by son.
[2017-11-05 00:10] VITALS: BP 110/65
== END 2017-11-05 00:12 | disposition home or self-care (01) ==
LOC: ER 22:25
DX: R11.2 Nausea with vomiting, unspecified (principal); I10 Essential (primary) hypertension; E78.00 Pure hypercholesterolemia, unspecified; E11.9 Type 2 diabetes mellitus without complications; Z90.49 Acquired absence of other specified parts of digestive tract; Z98.890 Other specified postprocedural states
CPT/HCPCS: 99283; A4606; Q0162; Z7610

== ENCOUNTER 2018-03-04 21:00 | Inpatient (IN) | payer MEDICARE, OTHER ==
[~2018-03-04] VITALS: Ht 154.9 cm; Wt 78.0 kg
[~2018-03-04 21:00] MED LIST changes: -LEVO500T75 PO; +LORA-259 PO
--- NOTE | 2018-03-04 21:07 | NUR ---
CALLED PT INTO TRIAGE ROOM. PT STATES "I WANT TO WAIT FOR MY SON TO COME FIRST". PT REFUSED TO COME IN FOR TRIAGE
--- NOTE | 2018-03-04 21:12 | NUR ---
pt bib son c/o N/V, no emesis present, no abdominal pain, no chest pain reported. She is A, O/4, on RA, able to move all extremities without difficulty. Awaiting MD cao.
--- NOTE | 2018-03-04 21:15 | NUR ---
IV started, 20g left hand, labs drawn. EKG done.
--- NOTE | 2018-03-04 21:20 | NUR ---
Unable to collect urine sample for UA; tt does not have the urge to void at this time.
--- NOTE | 2018-03-04 21:20 | NUR ---
CXR in progress
[2018-03-04] MEDS ORDERED: ONDANSETRON HCL/PF 4 MG/2 ML VIAL IVP ONE (21:30)
[2018-03-04] MEDS ORDERED: IV NS 0.9% 500 ML BAG IV ONE (21:30)
[2018-03-04] MEDS ORDERED: ONDANSETRON HCL/PF 4 MG/2 ML VIAL ONE (21:34)
[2018-03-04 21:49] LABS: BASOPHILS # (AUTO) 0.1 /CMM (0.0-0.2); BASOPHILS % (AUTO) 1.3 % (0.0-2.0); EOSINOPHILS % (AUTO) 2.3 % (0.0-6.0); HEMATOCRIT 30 % (33-45); LYMPHOCYTES # (AUTO) 1.4 /CMM (0.8-4.8); LYMPHOCYTES % (AUTO) 28.9 % (20.0-44.0); MEAN CORPUSCULAR HGB CONC 33 g/dl (31.0-36.0); MEAN CORPUSCULAR VOLUME 90 fL (82-100); MONOCYTES # (AUTO) 0.4 /CMM (0.1-1.30); MONOCYTES % (AUTO) 8.4 % (2.0-12.0); NEUTROPHILS # (AUTO) 2.9 /CMM (1.8-8.9); NEUTROPHILS % (AUTO) 59.1 % (43.0-81.0); PLATELET COUNT (AUTO) 145 /CMM (150-450); RED BLOOD CELL COUNT(AUTO) 3.34 MIL/uL (4.0-5.2); WHITE BLOOD COUNT (AUTO) 4.9 K/uL (4.3-11.0)
[2018-03-04 22:00] LABS: CALCIUM, SERUM 9.2 mg/dL (8.5-10.1); CARBON DIOXIDE 33 mmol/L (21-32); CHLORIDE 101 mmol/L (98-107); CREATININE 0.9 mg/dL (0.6-1.3); GLUCOSE 132 mg/dL (74-106); POTASSIUM 4.6 mmol/L (3.5-5.1); SODIUM SERUM 137 mmol/L (136-145); UREA NITROGEN, BLOOD 20 mg/dL (7-18)
[2018-03-04 22:06] LABS: ALANINE AMINOTRANSFERASE 24 U/L (12-78); ALBUMIN 3.3 g/dL (3.4-5.0); ALKALINE PHOSPHATASE 43 U/L (46-116); ASPARTATE AMINOTRANSFERASE 33 U/L (15-37); BILIRUBIN,TOTAL 0.3 mg/dL (0.2-1.0); LIPASE 220 U/L (73-393); TOTAL PROTEIN, SERUM 7.2 g/dL (6.4-8.2)
--- NOTE | 2018-03-04 22:25 | NUR ---
Repeat EKG done, O2 @ 4 lpm delivered via NC. Pt states she feels cold. Warm blanket and a pair of socks provided.
--- NOTE | 2018-03-04 22:45 | NUR ---
Pt states she feels much better, nausea relieved.
--- NOTE | 2018-03-05 00:30 | NUR ---
Assisted pt to [facility].
--- NOTE | 2018-03-05 01:16 | NUR ---
Per Dr. Harrison. pt [facility]; pt and son at notified.
[2018-03-05] MEDS ORDERED: ONDANSETRON HCL/PF 4 MG/2 ML VIAL IVP PRN (01:30)
[2018-03-05] MEDS ORDERED: NITROGLYCERIN PACKET 1 GM PACKET TOP ONE (01:30)
[2018-03-05] MEDS ORDERED: MAGNESIUM HYDROXIDE 30 ML UDC PO PRN (01:30)
[2018-03-05] MEDS ORDERED: MAG HYDROX/AL HYDROX/SIMETH 30 ML UDC PO PRN (01:30)
[2018-03-05] MEDS ORDERED: HYDROCODONE/APAP 5/325MG 1 EACH TABLET PO PRN (01:30)
[2018-03-05] MEDS ORDERED: Z GUARD REMEDY 2 OZ OINT TP PRN (01:30)
[2018-03-05] MEDS ORDERED: ASPIRIN 81 MG TAB.CHEW PO ONE (01:30)
[2018-03-05] MEDS ORDERED: ACETAMINOPHEN 325 MG TABLET PO PRN (01:30)
[2018-03-05] MEDS ORDERED: ASPIRIN EC 81 MG TABLET.DR PO ONE (01:51)
[2018-03-05] MEDS ORDERED: NITROGLYCERIN PACKET 1 GM PACKET ONE (01:51)
[2018-03-05] MEDS ORDERED: ASPIRIN 81 MG TAB.CHEW ONE (01:53)
--- NOTE | 2018-03-05 02:12 | NUR ---
Assisted pt to BR, urine sample collected and sent to lab.
--- NOTE | 2018-03-05 02:22 | NUR ---
Pt will be admitted to [facility]. Report given to LYNETTE Best.
[2018-03-05 02:35] VITALS: BP 139/70
--- NOTE | 2018-03-05 02:35 | NUR ---
Pt transported to tele via [facility]
--- NOTE | 2018-03-05 02:35 | NUR ---
HEAVY EQUIPMENT OPERATOR APPRENTICE ADMISSION NOTES RECEIVED PATIENT FROM ER [facility]. PATIENT IS ALERT AND ORIENTED X2-3, VERBALLY RESPONSIVE. ABLE TO MAKE NEEDS KNOWN. FARSI SPEAKER. BREATHING EVEN AND UNLABORED. ON 2LPM OXYGEN VIA NC. NO SOB NOTED. NO COMPLAINTS OF PAIN OR DISCOMFORT. NO FACIAL GRIMACING. SKIN DRY AND WARM TO TOUCH. AFEBRILE. ORIENTED TO THE USE OF UNIT AMENITIES. BELONGINGS ACCOUNTED FOR. SKIN CHECK RENDERED. SON IS AT BEDSIDE - TRANSLATE FOR PATIENT. IV INTACT AND PATENT. ALL OTHER NEEDS ATTENDED TO. SAFETY MEASURES IN PLACE. CALL LIGHT WITHIN REACH. WILL CONTINUE TO MONITOR.
[2018-03-05 02:47] LABS: APPEARANCE,URINE CLEAR (CLEAR); BILIRUBIN,URINE NEGATIVE (NEGATIVE); BLOOD, URINE NEGATIVE Ery/uL (NEGATIVE); COLOR,URINE YELLOW (YELLOW); KETONES,URINE NEGATIVE (NEGATIVE); LEUKOCYTE ESTERASE ,URINE NEGATIVE (NEGATIVE); NITRITE, URINE NEGATIVE (NEGATIVE); PROTEIN,URINE NEGATIVE (NEGATIVE); UGLUCOSE NEGATIVE (NEGATIVE); UROBILINOGEN,URINE 0.2 EU/dL (0.2)
[2018-03-05 04:00] VITALS: BP 114/54
--- NOTE | 2018-03-05 06:31 | NUR ---
TEACHER RESOURCE CLOSING NOTES PATIENT IS RESTING IN BED IN STABLE CONDITION. NO ACUTE CHANGES THROUGHOUT SHIFT. SON AT BEDSIDE. FARSI SPEAKER. BREATHING EVEN AND UNLABORED. ON 2LPM OXYGEN VIA NC. NO SOB NOTED. NO COMPLAINTS OF PAIN OR DISCOMFORT. NO FACIAL GRIMACING. SKIN DRY AND WARM TO TOUCH. AFEBRILE. IV INTACT AND PATENT. KEPT CLEAN AND DRY. ALL OTHER NEEDS ATTENDED TO. SAFETY MEASURES IN PLACE. CALL LIGHT WITHIN REACH. WILL ENDORSE TO ONCOMING NURSE FOR CONTINUITY OF CARE.
--- NOTE | 2018-03-05 07:00 | NUR ---
MS RN OPENING NOTES PATIENT IS ALERT AND ORIENTED X2-3, VERBALLY RESPONSIVE. BREATHING EVEN AND UNLABORED. ON 2LPM OXYGEN VIA NC. NO SOB NOTED. NO COMPLAINTS OF PAIN OR DISCOMFORT. SKIN DRY AND WARM TO TOUCH. AFEBRILE. SON IS AT BEDSIDE - TRANSLATE FOR PATIENT. IV INTACT AND PATENT. WILL CONTINUE TO MONITOR
[2018-03-05 07:58] LABS: BASOPHILS % (AUTO) 0.4 % (0.0-2.0); EOSINOPHILS % (AUTO) 2.1 % (0.0-6.0); HEMATOCRIT 29 % (33-45); HEMOGLOBIN 9.8 g/dL (11.5-14.8); LYMPHOCYTES # (AUTO) 1.6 /CMM (0.8-4.8); LYMPHOCYTES % (AUTO) 37.1 % (20.0-44.0); MEAN CORPUSCULAR HGB CONC 33 g/dl (31.0-36.0); MEAN CORPUSCULAR VOLUME 90 fL (82-100); MONOCYTES # (AUTO) 0.3 /CMM (0.1-1.30); MONOCYTES % (AUTO) 7.9 % (2.0-12.0); NEUTROPHILS # (AUTO) 2.2 /CMM (1.8-8.9); NEUTROPHILS % (AUTO) 52.5 % (43.0-81.0); PLATELET COUNT (AUTO) 132 /CMM (150-450); RED BLOOD CELL COUNT(AUTO) 3.26 MIL/uL (4.0-5.2); WHITE BLOOD COUNT (AUTO) 4.3 K/uL (4.3-11.0)
[2018-03-05 08:00] VITALS: BP 98/50
[2018-03-05] MEDS ORDERED: LORAZEPAM 1 MG TABLET PO PRN (08:00)
[2018-03-05 08:12] LABS: CALCIUM, SERUM 8.8 mg/dL (8.5-10.1); CARBON DIOXIDE 34 mmol/L (21-32); CHLORIDE 103 mmol/L (98-107); CREATININE 0.8 mg/dL (0.6-1.3); GLUCOSE 149 mg/dL (74-106); PHOSPHORUS 3.6 mg/dL (2.5-4.9); POTASSIUM 3.8 mmol/L (3.5-5.1); SODIUM SERUM 143 mmol/L (136-145); UREA NITROGEN, BLOOD 16 mg/dL (7-18)
[2018-03-05 08:14] LABS: MAGNESIUM 1.1 mg/dL (1.8-2.4)
[2018-03-05 08:23] LABS: CHOLESTEROL 124 mg/dL (<200); HDL CHOLESTEROL 59 mg/dL (40-60); LDL 60 mg/dL (0-99); THYROID STIMULATING HORMONE 1.513 uIU/mL (0.358-3.74); TRIGLYCERIDES 72 mg/dL (30-150)
[2018-03-05] MEDS ORDERED: OMEGA ACID ETHYL ESTERS PO SCH (09:00)
[2018-03-05] MEDS: SPIRONOLACTONE 25 MG TABLET PO SCH (09:06)
[2018-03-05] MEDS: CALCIUM CARB 250MG /VITAMIN D 1 UDTAB PO SCH (09:06)
[2018-03-05] MEDS ORDERED: Magnesium 1GM/D5W 100ML PREMIX 100 ML IV SCH (11:00)
[2018-03-05] MEDS: Magnesium 1GM/D5W 100ML PREMIX 100 ML IV SCH ×4 (12:16→17:49)
[2018-03-05 16:00] VITALS: BP 125/60
--- NOTE | 2018-03-05 16:37 | NUR ---
PER DR. EAGLE KEEP PT NPO AFTER MIDNIGHT 03/06/18
--- NOTE | 2018-03-05 19:00 | NUR ---
PATIENT IS ALERT AND ORIENTED X2-3, VERBALLY RESPONSIVE. BREATHING EVEN AND UNLABORED. ON 2LPM OXYGEN VIA NC. NO SOB NOTED. NO COMPLAINTS OF PAIN. WILL ENDORSE TO NEXT SHIFT FOR ROSA.
--- NOTE | 2018-03-05 19:35 | NUR ---
MS/RN NOTES RECEIVED PT. LYING IN BED. PT. IS AWAKE, ALERT AND ORIENTED X3. BREATHING EVEN AND UNLABORED ON 2LPM O2 VIA NC. NO SOB, RESPIRATORY DISTRESS OR COMPLAINTS OF PAIN NOTED AT THIS TIME. PT. WITH LEFT HAND 20 GAUGE IV PRESENT, PATENT AND INTACT ADMINISTERING TO PT. MAGNESIUM BAG 05/22. PT. SON PRESENT AT BEDSIDE. PER DAYSHIFT NURSE PT. IS TO BE NPO AFTER MIDNIGHT FOR POSSIBLE EGD TOMORROW. EDUCATED PT. ON CALLING FOR ASSISTANCE BED LOCKED AND IN LOWEST POSITION SIDE RAILS UP X2, BED ALARM ON, CALL LIGHT WITHIN REACH, WILL CONTINUE TO MONITOR.
[2018-03-05 20:38] VITALS: BP 150/68
[2018-03-05] MEDS: ATORVASTATIN 10 MG TABLET PO SCH (22:16)
--- NOTE | 2018-03-06 06:20 | NUR ---
MS/RN NOTES PT. IS LYING IN BED RESTING, BREATHING EVEN AND UNLABORED ON 2LPM O2 VIA NC. NO SOB, RESPIRATORY DISTRESS OR COMPLAINTS OF PAIN NOTED AT THIS TIME. PT. WITH LEFT HAND 20 GAUGE IV PRESENT, PATENT AND INTACT. PT. REMAINS NPO SINCE MIDNIGHT PENDING POSSIBLE EGD TODAY. ALL PT. NEEDS MET. PT. SON PRESENT AT BEDSIDE. BED LOCKED AND IN LOWEST POSITION SIDE RAILS UP X2, BED ALARM ON, CALL LIGHT WITHIN REACH, WILL ENDORSE TO DAYSHIFT NURSE FOR CONTINUITY OF CARE.
--- NOTE | 2018-03-06 07:00 | NUR ---
MS RN OPENING NOTES PT IS AWAKE, A/O X3. BREATHING EVEN AND UNLABORED ON 2LPM O2 VIA NC. NO SOB, RESPIRATORY DISTRESS OR COMPLAINTS OF PAIN AT THIS TIME. LEFT HAND 20 GAUGE IV, PATENT AND INTACT. SON AT BEDSIDE. BED LOCKED AND IN LOWEST POSITION SIDE RAILS UP X2, BED ALARM ON, CALL LIGHT WITHIN REACH, WILL CONTINUE TO MONITOR.
[2018-03-06 08:00] VITALS: BP 114/59
[2018-03-06] MEDS: CALCIUM CARB 250MG /VITAMIN D 1 UDTAB PO SCH (08:45)
[2018-03-06] MEDS: SPIRONOLACTONE 25 MG TABLET PO SCH (08:45)
[2018-03-06] MEDS ORDERED: ANESTHESIA TRAY IN PYXIS 1 EA TRAY MC ONE (09:57)
[2018-03-06] MEDS ORDERED: DEXTROSE 50%-WATER 50 ML DISP.SYRIN IV PRN (11:00)
[2018-03-06 11:41] LABS: CALCIUM, SERUM 9.2 mg/dL (8.5-10.1); CARBON DIOXIDE 29 mmol/L (21-32); CHLORIDE 100 mmol/L (98-107); GLUCOSE 110 mg/dL (74-106); MAGNESIUM 1.8 mg/dL (1.8-2.4); PHOSPHORUS 5.7 mg/dL (2.5-4.9); POTASSIUM 4.3 mmol/L (3.5-5.1); SODIUM SERUM 139 mmol/L (136-145); UREA NITROGEN, BLOOD 21 mg/dL (7-18)
[2018-03-06] MEDS: BLOOD SUGAR DIAGNOSTIC 1 EACH STRIP IN SCH ×3 (12:24→21:39)
[2018-03-06 14:37] LABS: BASOPHILS % (AUTO) 0.2 % (0.0-2.0); EOSINOPHILS % (AUTO) 2.9 % (0.0-6.0); HEMATOCRIT 31 % (33-45); HEMOGLOBIN 10.2 g/dL (11.5-14.8); LYMPHOCYTES % (AUTO) 21.5 % (20.0-44.0); MEAN CORPUSCULAR HGB CONC 33 g/dl (31.0-36.0); MEAN CORPUSCULAR VOLUME 91 fL (82-100); MONOCYTES # (AUTO) 0.3 /CMM (0.1-1.30); MONOCYTES % (AUTO) 6.6 % (2.0-12.0); NEUTROPHILS # (AUTO) 3.2 /CMM (1.8-8.9); NEUTROPHILS % (AUTO) 68.8 % (43.0-81.0); PLATELET COUNT (AUTO) 136 /CMM (150-450); RED BLOOD CELL COUNT(AUTO) 3.38 MIL/uL (4.0-5.2); WHITE BLOOD COUNT (AUTO) 4.7 K/uL (4.3-11.0)
[2018-03-06 16:00] VITALS: BP 121/51
[2018-03-06] MEDS ORDERED: OMEGA ACID ETHYL ESTERS PO SCH (17:00)
[2018-03-06] MEDS: INSULIN REGULAR, HUMAN 100 UNIT/ML 3 ML VIAL SQ PRN ×2 (17:50→21:48)
--- NOTE | 2018-03-06 19:00 | NUR ---
NO CHANGES THROUGHOUT OF SHIFT. PT FOR POSSIBLE D/C TOMORROW. SAFETY PRECAUTIONS IN PLACE ,, WILL ENDORSE TO NEXT SHIFT FOR ROSA.
--- NOTE | 2018-03-06 19:40 | NUR ---
RN OPENING NOTES RECEIVED REPORT FROM [facility]. FOUND Pt AWAKE, RESTING IN BED. SON VISITING AT BEDSIDE. NO S/S OF ACUTE DISTRESS OR SOB NOTED. Pt IS A/OX4, FARSI SPEAKING. IV ACCESS ON L HAND #20G, SL. SAFETY MEASURES IN PLACE. BED LOW, LOCKED, HOB ELEVATED, SIDE RAILS UP, CALL LIGHT AND BEDSIDE TABLE WITHIN REACH. WILL CONTINUE TO MONITOR Pt's CONDITION AND SAFETY THROUGHOUT THE NIGHT.
[2018-03-06 20:00] VITALS: BP 117/57
[2018-03-06 20:16] VITALS: BP 117/57
[2018-03-06] MEDS: ATORVASTATIN 10 MG TABLET PO SCH (21:39)
--- NOTE | 2018-03-06 22:00 | NUR ---
RN NOTES HS ACCUCHECK BG 155. ADMINISTERED 2UN OF INSULIN PER SLIDING SCALE.
[2018-03-07] MEDS: BLOOD SUGAR DIAGNOSTIC 1 EACH STRIP IN SCH ×2 (06:34→12:32)
--- NOTE | 2018-03-07 06:35 | NUR ---
RN NOTES AC ACCUCHECK BG 137. ADMINISTERED 2UN OF INSULIN PER SLIDING SCALE.
--- NOTE | 2018-03-07 06:40 | NUR ---
RN CLOSING NOTES NO SIGNIFICANT CHANGES IN Pt's CONDITION. Pt REMAINS STABLE PER BASELINE. Pt RESTING IN BED. RESPIRATIONS EVEN AND UNLABORED. NO S/S OF ACUTE DISTRESS OR SOB NOTED DURING NIGHT. ALL NEEDS MET AND ATTENDED TO. SAFETY MEASURES IN PLACE. WILL ENDORSE TO DAYSHIFT RN FOR Pt's ROSA.
[2018-03-07] MEDS: INSULIN REGULAR, HUMAN 100 UNIT/ML 3 ML VIAL SQ PRN ×2 (06:42→12:32)
--- NOTE | 2018-03-07 08:00 | NUR ---
MS RN OPENING NOTES RECEIVED Pt AWAKE, RESTING IN BED. SON AT BEDSIDE. NO S/S OF ACUTE DISTRESS OR SOB NOTED. Pt IS A/OX4, FARSI SPEAKING. IV ACCESS ON L HAND #20G, SL. SAFETY MEASURES IN PLACE. BED LOW, LOCKED, HOB ELEVATED, SIDE RAILS UP, CALL LIGHT AND BEDSIDE TABLE WITHIN REACH. WILL CONTINUE TO MONITOR Pt's CONDITION AND SAFETY THROUGHOUT THE NIGHT.
[2018-03-07 08:06] VITALS: BP 122/56
[2018-03-07 08:53] VITALS: BP 120/73
[2018-03-07] MEDS: SPIRONOLACTONE 25 MG TABLET PO SCH (08:53)
[2018-03-07] MEDS: CALCIUM CARB 250MG /VITAMIN D 1 UDTAB PO SCH (08:53)
--- NOTE | 2018-03-07 10:00 | NUR ---
PT AMBULATED WITH P.T. USING FWW WITH SLOW,STEADFY GAIT AND TOLERATING WELL.
--- NOTE | 2018-03-07 14:15 | NUR ---
DISCHARGED HOME WITH STABLE V/S. ACCOMPANIED BY HER SON,NICOLE.DENIES ANY PAIN OR DISTRESS.IV H/L REMOVED TO LT HAND WITH NO BLEEDING NOTED.DISCHARGE PAPERS AND PRESCRIPTION GIVEN TO SONNICOLE.
== END 2018-03-07 14:10 | disposition home or self-care (01) | DRG 383 ==
LOC: ER 21:06 → TELE 03-05 01:52 → MED 03-05 09:43
PROVIDERS: ADMIT Hospitalist; ATTEND Hospitalist
PROC: 0DB78ZX Excision of Stomach, Pylorus, Via Natural or Artificial Opening Endoscopic, Diagnostic (ICD-10-PCS; principal; 2018-03-06)
DX: K25.3 Acute gastric ulcer without hemorrhage or perforation (principal); I21.4 Non-ST elevation (NSTEMI) myocardial infarction; E44.1 Mild protein-calorie malnutrition; E11.9 Type 2 diabetes mellitus without complications; I10 Essential (primary) hypertension; D69.6 Thrombocytopenia, unspecified; Z90.49 Acquired absence of other specified parts of digestive tract; Z79.84 Long term (current) use of oral hypoglycemic drugs; Z79.899 Other long term (current) drug therapy; D63.8 Anemia in other chronic diseases classified elsewhere; E78.5 Hyperlipidemia, unspecified; F41.9 Anxiety disorder, unspecified; Z68.32 Body mass index [BMI] 32.0-32.9, adult; E66.9 Obesity, unspecified; E83.42 Hypomagnesemia; F03.90 Unspecified dementia, unspecified severity, without behavioral disturbance, psychotic disturbance, mood disturbance, and anxiety; I25.10 Atherosclerotic heart disease of native coronary artery without angina pectoris; I25.2 Old myocardial infarction; K21.9 Gastro-esophageal reflux disease without esophagitis; Z96.659 Presence of unspecified artificial knee joint
CPT/HCPCS: 36415; 71045-TC; 80048-TC; 80061-TC; 80076-TC; 81000-TC; 82962-TC; 83690-TC; 83735-TC; 84100-TC; 84443-TC; 84484-TC; 85025-TC; 87081-TC; 88305-TC; 88313-TC; 88342; G0378; J1815; J2405; J2704; J3475; J3490; J7040; J7050